=== PATIENT | female | born 1935 | race Caucasian/White ===

== ENCOUNTER → 2023-11-30 13:40 | Outpatient (REF) | payer MEDICARE, BC, SELFPAY ==
[2023-11-30 14:03] LABS: % Basophils 1.2 % (0-2); % Immature Granulocytes 0.5 % (0-0.5); % Lymphocytes 11.5 % (20.5-51.1); % Monocytes 7.8 % (1.7-9.3); Absolute Basophils 0.1 10^3/uL (0-0.2); Absolute Eosinophils 0.1 10^3/uL (0-0.7); Absolute Lymphocytes 0.8 10^3/uL (1.2-3.4); Absolute Monocytes 0.5 10^3/uL (0.1-0.6); Absolute Neutrophils 5.1 10^3/uL (1.4-6.5); Hematocrit 34.4 % (37.0-47.0); Hemoglobin 10.9 g/dL (12.0-16.0); Mean Corp Hgb Conc. 31.7 g/dL (33.0-37.0); Mean Corpuscular Hgb 27.3 pg (27.0-31.0); Platelet Count 107 10^3/uL (130-400); White Blood Cell Count 6.6 10^3/uL (4.8-10.8)
== END ==
LOC: OIDL 13:40
PROVIDERS: ATTENDING PHYSICIAN Internal Medicine Hematology & Oncology
DX: D69.3 Immune thrombocytopenic purpura (principal)
CPT/HCPCS: 36415; 85025

== ENCOUNTER → 2023-12-07 13:41 | Outpatient (REF) | payer MEDICARE, BC, SELFPAY ==
[2023-12-07 14:02] LABS: % Basophils 0.3 % (0-2); % Immature Granulocytes 0.5 % (0-0.5); % Lymphocytes 4.1 % (20.5-51.1); % Monocytes 5.2 % (1.7-9.3); % Neutrophils 89.9 % (42.2-75.2); Absolute Immature Granulocytes 0.1 10^3/uL (0-0.05); Absolute Lymphocytes 0.5 10^3/uL (1.2-3.4); Absolute Monocytes 0.6 10^3/uL (0.1-0.6); Absolute Neutrophils 10.3 10^3/uL (1.4-6.5); Hematocrit 34.3 % (37.0-47.0); Mean Corp Hgb Conc. 32.1 g/dL (33.0-37.0); Mean Corpuscular Hgb 27.4 pg (27.0-31.0); Mean Corpuscular Volume 85.3 fL (81.0-99.0); Mean Platelet Volume 11.4 fL (7.4-10.4); Platelet Count 108 10^3/uL (130-400); Red Blood Cell Count 4.02 10^6/uL (4.20-5.40); Red Cell Dist. Width 15.1 % (11.5-14.5); White Blood Cell Count 11.5 10^3/uL (4.8-10.8)
== END ==
LOC: OIDL 13:41
PROVIDERS: ATTENDING PHYSICIAN Internal Medicine Hematology & Oncology
DX: D69.3 Immune thrombocytopenic purpura (principal)
CPT/HCPCS: 36415; 85025

== ENCOUNTER → 2023-12-14 13:48 | Outpatient (REF) | payer MEDICARE, BC, SELFPAY ==
[2023-12-14 14:09] LABS: % Basophils 0.6 % (0-2); % Eosinophils 0.6 % (0-6); % Immature Granulocytes 0.6 % (0-0.5); % Lymphocytes 5.9 % (20.5-51.1); % Monocytes 8.1 % (1.7-9.3); % Neutrophils 84.2 % (42.2-75.2); Absolute Basophils 0.1 10^3/uL (0-0.2); Absolute Eosinophils 0.1 10^3/uL (0-0.7); Absolute Immature Granulocytes 0.1 10^3/uL (0-0.05); Absolute Lymphocytes 0.8 10^3/uL (1.2-3.4); Absolute Monocytes 1.2 10^3/uL (0.1-0.6); Hematocrit 33.3 % (37.0-47.0); Hemoglobin 10.7 g/dL (12.0-16.0); Mean Corp Hgb Conc. 32.1 g/dL (33.0-37.0); Mean Corpuscular Hgb 27.6 pg (27.0-31.0); Mean Corpuscular Volume 85.8 fL (81.0-99.0); Mean Platelet Volume 11.9 fL (7.4-10.4); Platelet Count 160 10^3/uL (130-400); Red Blood Cell Count 3.88 10^6/uL (4.20-5.40); Red Cell Dist. Width 15.9 % (11.5-14.5); White Blood Cell Count 14.2 10^3/uL (4.8-10.8)
== END ==
LOC: OIDL 13:48
PROVIDERS: ATTENDING PHYSICIAN Internal Medicine Hematology & Oncology
DX: D69.3 Immune thrombocytopenic purpura (principal)
CPT/HCPCS: 36415; 85025

== ENCOUNTER → 2023-12-21 13:49 | Outpatient (REF) | payer MEDICARE, BC, SELFPAY ==
[2023-12-21 14:16] LABS: % Basophils 0.7 % (0-2); % Eosinophils 1.4 % (0-6); % Immature Granulocytes 0.6 % (0-0.5); % Lymphocytes 9.8 % (20.5-51.1); % Monocytes 6.3 % (1.7-9.3); % Neutrophils 81.2 % (42.2-75.2); Absolute Basophils 0.1 10^3/uL (0-0.2); Absolute Eosinophils 0.1 10^3/uL (0-0.7); Absolute Lymphocytes 0.7 10^3/uL (1.2-3.4); Absolute Monocytes 0.5 10^3/uL (0.1-0.6); Absolute Neutrophils 5.8 10^3/uL (1.4-6.5); Hematocrit 33.2 % (37.0-47.0); Hemoglobin 10.5 g/dL (12.0-16.0); Mean Corp Hgb Conc. 31.6 g/dL (33.0-37.0); Mean Corpuscular Hgb 27.3 pg (27.0-31.0); Mean Corpuscular Volume 86.2 fL (81.0-99.0); Mean Platelet Volume 12.5 fL (7.4-10.4); Platelet Count 106 10^3/uL (130-400); Red Blood Cell Count 3.85 10^6/uL (4.20-5.40); Red Cell Dist. Width 15.3 % (11.5-14.5); White Blood Cell Count 7.1 10^3/uL (4.8-10.8)
== END ==
LOC: OIDL 13:49
PROVIDERS: ATTENDING PHYSICIAN Internal Medicine Hematology & Oncology
DX: D69.3 Immune thrombocytopenic purpura (principal)
CPT/HCPCS: 36415; 85025

== ENCOUNTER → 2023-12-28 13:48 | Outpatient (REF) | payer MEDICARE, BC, SELFPAY ==
[2023-12-28 14:36] LABS: % Basophils 1.3 % (0-2); % Eosinophils 1.3 % (0-6); % Immature Granulocytes 0.7 % (0-0.5); % Lymphocytes 10.6 % (20.5-51.1); % Monocytes 7.7 % (1.7-9.3); % Neutrophils 78.4 % (42.2-75.2); Absolute Basophils 0.1 10^3/uL (0-0.2); Absolute Eosinophils 0.1 10^3/uL (0-0.7); Absolute Immature Granulocytes 0.1 10^3/uL (0-0.05); Absolute Lymphocytes 0.8 10^3/uL (1.2-3.4); Absolute Monocytes 0.6 10^3/uL (0.1-0.6); Hematocrit 32.8 % (37.0-47.0); Hemoglobin 10.7 g/dL (12.0-16.0); Mean Corp Hgb Conc. 32.6 g/dL (33.0-37.0); Mean Corpuscular Hgb 27.4 pg (27.0-31.0); Mean Corpuscular Volume 84.1 fL (81.0-99.0); Mean Platelet Volume 12.7 fL (7.4-10.4); Nucleated Red Blood Cells % 0 %; Platelet Count 103 10^3/uL (130-400); Red Cell Dist. Width 15.6 % (11.5-14.5); White Blood Cell Count 7.6 10^3/uL (4.8-10.8)
== END ==
LOC: OIDL 13:48
PROVIDERS: ATTENDING PHYSICIAN Internal Medicine Hematology & Oncology
DX: D69.3 Immune thrombocytopenic purpura (principal)
CPT/HCPCS: 85025

== ENCOUNTER → 2023-12-29 12:33 | Outpatient (REF) | payer MEDICARE, BC, SELFPAY | LOC: WOUND 12:33 | PROVIDERS: ATTENDING PHYSICIAN Surgery; FAMILY PHYSICIAN Internal Medicine | DX: I87.312 Chronic venous hypertension (idiopathic) with ulcer of left lower extremity (principal); L97.821 Non-pressure chronic ulcer of other part of left lower leg limited to breakdown of skin; I87.2 Venous insufficiency (chronic) (peripheral); I89.0 Lymphedema, not elsewhere classified; D69.3 Immune thrombocytopenic purpura; Z17.0 Estrogen receptor positive status [ER+]; C50.411 Malignant neoplasm of upper-outer quadrant of right female breast; I10 Essential (primary) hypertension | CPT/HCPCS: 99203 ==

== ENCOUNTER → 2024-01-01 10:09 | Outpatient (REF) | payer MEDICARE, BC, SELFPAY | LOC: WDC 10:09 | PROVIDERS: ATTENDING PHYSICIAN Nurse Practitioner Adult Health; FAMILY PHYSICIAN Internal Medicine | DX: N63.10 Unspecified lump in the right breast, unspecified quadrant (principal); N63.12 Unspecified lump in the right breast, upper inner quadrant | CPT/HCPCS: 76642; 77062; 77066 ==

== ENCOUNTER → 2024-01-04 13:30 | Outpatient (REF) | payer MEDICARE, BC, SELFPAY | LOC: WOUND 13:30 | PROVIDERS: ATTENDING PHYSICIAN Surgery; FAMILY PHYSICIAN Internal Medicine | DX: I87.312 Chronic venous hypertension (idiopathic) with ulcer of left lower extremity (principal); L97.821 Non-pressure chronic ulcer of other part of left lower leg limited to breakdown of skin; I87.2 Venous insufficiency (chronic) (peripheral); I89.0 Lymphedema, not elsewhere classified; D69.3 Immune thrombocytopenic purpura; Z17.0 Estrogen receptor positive status [ER+]; C50.411 Malignant neoplasm of upper-outer quadrant of right female breast; I10 Essential (primary) hypertension | CPT/HCPCS: 11042; 36415; 85025 ==

== ENCOUNTER → 2024-01-11 13:50 | Outpatient (REF) | payer MEDICARE, BC, SELFPAY | LOC: WOUND 13:50 | PROVIDERS: ATTENDING PHYSICIAN Surgery; FAMILY PHYSICIAN Internal Medicine | DX: I87.312 Chronic venous hypertension (idiopathic) with ulcer of left lower extremity (principal); L97.821 Non-pressure chronic ulcer of other part of left lower leg limited to breakdown of skin; Z17.0 Estrogen receptor positive status [ER+]; C50.411 Malignant neoplasm of upper-outer quadrant of right female breast; I10 Essential (primary) hypertension; I89.0 Lymphedema, not elsewhere classified; D69.3 Immune thrombocytopenic purpura | CPT/HCPCS: 11042; 36415; 80053; 85025 ==

== ENCOUNTER → 2024-01-12 08:31 | Outpatient (REF) | payer MEDICARE, BC, SELFPAY ==
--- NOTE | 2024-01-12 14:19 | OID.BR.INTR ---
[facility] Breast Navigator - Initial
- -
Date of Contact: 01/12/24
Met with patient. Patient given written information on navigator services available at [facility]. Will follow up as needed per protocol.
== END ==
LOC: WDC 08:31
PROVIDERS: ATTENDING PHYSICIAN Nurse Practitioner Adult Health; FAMILY PHYSICIAN Internal Medicine
DX: N63.12 Unspecified lump in the right breast, upper inner quadrant (principal)
CPT/HCPCS: 88305; 19083

== ENCOUNTER → 2024-01-18 13:47 | Outpatient (REF) | payer MEDICARE, BC, SELFPAY ==
[2024-01-18 14:07] LABS: % Basophils 1.2 % (0-2); % Eosinophils 1.2 % (0-6); % Immature Granulocytes 0.7 % (0-0.5); % Lymphocytes 9.9 % (20.5-51.1); % Monocytes 6.9 % (1.7-9.3); % Neutrophils 80.1 % (42.2-75.2); Absolute Basophils 0.1 10^3/uL (0-0.2); Absolute Eosinophils 0.1 10^3/uL (0-0.7); Absolute Immature Granulocytes 0.1 10^3/uL (0-0.05); Absolute Lymphocytes 0.7 10^3/uL (1.2-3.4); Absolute Monocytes 0.5 10^3/uL (0.1-0.6); Absolute Neutrophils 5.9 10^3/uL (1.4-6.5); Hematocrit 32.7 % (37.0-47.0); Hemoglobin 10.3 g/dL (12.0-16.0); Mean Corp Hgb Conc. 31.5 g/dL (33.0-37.0); Mean Corpuscular Hgb 27.4 pg (27.0-31.0); Mean Platelet Volume 11.1 fL (7.4-10.4); Platelet Count 119 10^3/uL (130-400); Red Blood Cell Count 3.76 10^6/uL (4.20-5.40); Red Cell Dist. Width 15.4 % (11.5-14.5); White Blood Cell Count 7.3 10^3/uL (4.8-10.8)
== END ==
LOC: OIDL 13:47
PROVIDERS: ATTENDING PHYSICIAN Internal Medicine Hematology & Oncology
DX: D69.3 Immune thrombocytopenic purpura (principal)
CPT/HCPCS: 36415; 85025

== ENCOUNTER → 2024-01-19 13:33 | Outpatient (REF) | payer MEDICARE, BC, SELFPAY | LOC: WOUND 13:33 | PROVIDERS: ATTENDING PHYSICIAN Surgery; FAMILY PHYSICIAN Internal Medicine | DX: I87.312 Chronic venous hypertension (idiopathic) with ulcer of left lower extremity (principal); L97.821 Non-pressure chronic ulcer of other part of left lower leg limited to breakdown of skin; I87.2 Venous insufficiency (chronic) (peripheral); I89.0 Lymphedema, not elsewhere classified; D69.3 Immune thrombocytopenic purpura; Z17.0 Estrogen receptor positive status [ER+]; C50.411 Malignant neoplasm of upper-outer quadrant of right female breast; I10 Essential (primary) hypertension | CPT/HCPCS: 11042 ==

== ENCOUNTER → 2024-01-25 13:42 | Outpatient (REF) | payer MEDICARE, BC, SELFPAY | LOC: WOUND 13:42 | PROVIDERS: ATTENDING PHYSICIAN Surgery; FAMILY PHYSICIAN Internal Medicine | DX: I87.312 Chronic venous hypertension (idiopathic) with ulcer of left lower extremity (principal); L97.821 Non-pressure chronic ulcer of other part of left lower leg limited to breakdown of skin; I87.2 Venous insufficiency (chronic) (peripheral); I89.0 Lymphedema, not elsewhere classified; D69.3 Immune thrombocytopenic purpura; Z17.0 Estrogen receptor positive status [ER+]; C50.411 Malignant neoplasm of upper-outer quadrant of right female breast; I10 Essential (primary) hypertension | CPT/HCPCS: 11042; 36415; 85025 ==

== ENCOUNTER → 2024-01-25 14:05 | Outpatient (REF) | payer MEDICARE, BC, SELFPAY ==
[2024-01-25 14:32] LABS: % Basophils 1.3 % (0-2); % Immature Granulocytes 0.6 % (0-0.5); % Monocytes 6.7 % (1.7-9.3); % Neutrophils 76.4 % (42.2-75.2); Absolute Basophils 0.1 10^3/uL (0-0.2); Absolute Eosinophils 0.1 10^3/uL (0-0.7); Absolute Lymphocytes 0.7 10^3/uL (1.2-3.4); Absolute Monocytes 0.4 10^3/uL (0.1-0.6); Absolute Neutrophils 4.1 10^3/uL (1.4-6.5); Hematocrit 31.9 % (37.0-47.0); Hemoglobin 10.1 g/dL (12.0-16.0); Mean Corp Hgb Conc. 31.7 g/dL (33.0-37.0); Mean Corpuscular Hgb 27.2 pg (27.0-31.0); Mean Corpuscular Volume 85.8 fL (81.0-99.0); Mean Platelet Volume 10.9 fL (7.4-10.4); Platelet Count 127 10^3/uL (130-400); Red Blood Cell Count 3.72 10^6/uL (4.20-5.40); Red Cell Dist. Width 15.1 % (11.5-14.5); White Blood Cell Count 5.4 10^3/uL (4.8-10.8)
== END ==
LOC: OIDL 14:05
PROVIDERS: ATTENDING PHYSICIAN Internal Medicine Hematology & Oncology
DX: D69.3 Immune thrombocytopenic purpura (principal)
CPT/HCPCS: 36415; 85025

== ENCOUNTER → 2024-02-01 14:14 | Outpatient (REF) | payer MEDICARE, BC, SELFPAY ==
[2024-02-01 14:44] LABS: % Basophils 1.3 % (0-2); % Eosinophils 2.8 % (0-6); % Immature Granulocytes 0.5 % (0-0.5); % Lymphocytes 13.7 % (20.5-51.1); % Monocytes 7.4 % (1.7-9.3); % Neutrophils 74.3 % (42.2-75.2); Absolute Basophils 0.1 10^3/uL (0-0.2); Absolute Eosinophils 0.2 10^3/uL (0-0.7); Absolute Lymphocytes 0.8 10^3/uL (1.2-3.4); Absolute Monocytes 0.4 10^3/uL (0.1-0.6); Absolute Neutrophils 4.4 10^3/uL (1.4-6.5); Hematocrit 31.5 % (37.0-47.0); Hemoglobin 10.1 g/dL (12.0-16.0); Mean Corp Hgb Conc. 32.1 g/dL (33.0-37.0); Mean Corpuscular Hgb 27.7 pg (27.0-31.0); Mean Corpuscular Volume 86.3 fL (81.0-99.0); Mean Platelet Volume 12.1 fL (7.4-10.4); Platelet Count 115 10^3/uL (130-400); Red Blood Cell Count 3.65 10^6/uL (4.20-5.40); Red Cell Dist. Width 15.1 % (11.5-14.5)
== END ==
LOC: OIDL 14:14
PROVIDERS: ATTENDING PHYSICIAN Internal Medicine Hematology & Oncology
DX: D69.3 Immune thrombocytopenic purpura (principal)
CPT/HCPCS: 36415; 85025

== ENCOUNTER → 2024-02-08 13:55 | Outpatient (REF) | payer MEDICARE, BC, SELFPAY | LOC: WOUND 13:55 | PROVIDERS: ATTENDING PHYSICIAN Surgery; FAMILY PHYSICIAN Internal Medicine | DX: I87.312 Chronic venous hypertension (idiopathic) with ulcer of left lower extremity (principal); L97.821 Non-pressure chronic ulcer of other part of left lower leg limited to breakdown of skin; I87.2 Venous insufficiency (chronic) (peripheral); I89.0 Lymphedema, not elsewhere classified; D69.3 Immune thrombocytopenic purpura; Z17.0 Estrogen receptor positive status [ER+]; C50.411 Malignant neoplasm of upper-outer quadrant of right female breast; I10 Essential (primary) hypertension | CPT/HCPCS: 11042 ==

== ENCOUNTER → 2024-02-08 14:07 | Outpatient (REF) | payer MEDICARE, BC, SELFPAY ==
[2024-02-08 14:20] LABS: % Basophils 0.5 % (0-2); % Eosinophils 0.1 % (0-6); % Immature Granulocytes 0.2 % (0-0.5); % Lymphocytes 4.7 % (20.5-51.1); % Monocytes 4.3 % (1.7-9.3); % Neutrophils 90.2 % (42.2-75.2); Absolute Basophils 0.1 10^3/uL (0-0.2); Absolute Lymphocytes 0.5 10^3/uL (1.2-3.4); Absolute Monocytes 0.4 10^3/uL (0.1-0.6); Hematocrit 32.4 % (37.0-47.0); Hemoglobin 10.5 g/dL (12.0-16.0); Mean Corp Hgb Conc. 32.4 g/dL (33.0-37.0); Mean Corpuscular Hgb 27.7 pg (27.0-31.0); Mean Corpuscular Volume 85.5 fL (81.0-99.0); Mean Platelet Volume 11.7 fL (7.4-10.4); Platelet Count 172 10^3/uL (130-400); Red Blood Cell Count 3.79 10^6/uL (4.20-5.40); Red Cell Dist. Width 14.8 % (11.5-14.5)
== END ==
LOC: OIDL 14:07
PROVIDERS: ATTENDING PHYSICIAN Internal Medicine Hematology & Oncology
DX: D69.3 Immune thrombocytopenic purpura (principal)
CPT/HCPCS: 36415; 85025

== ENCOUNTER 2024-02-14 16:14 | Emergency (ER) | payer MEDICARE, BC, SELFPAY ==
[2024-02-14 18:27] VITALS: BP 203/86
--- NOTE | 2024-02-14 19:04 | ED.SKININJ ---
HPI-Injury
General
Chief Complaint: Skin Problem
Source: patient
Exam Limitations: none
Time Seen by Provider: 02/14/24 18:36
Travel History
Have you had any contact with someone who has COVID-19?: No
Do you have any symptoms of coronavirus? Fever > 100 degrees, chills, cough, shortness of breath, sore throat, loss of taste or smell, muscle aches, or headache?: No
History of Present Illness-Injury
Initial Injury comments:
88-year-old female with history of lymphedema presents blisters noted to the dorsal aspect distally of the foot on the left side. She denies pain or fever. She follows with wound care for nonhealing wound on the lateral aspect of her garza. Her
visiting nurse came by 2 days ago and placed a compressive wrap around her foot and leg for her lymphedema. When this was removed they noticed the blisters. No other complaints at this time
Past History
Past History
ED Past Medical History: Arrthythmia (Atrial fibrillation), CAD, HTN and Other (hearing impaired, ITP, chronic lymphedema bilateral legs)
ED Past Surgical History: Cardiac (cardiac cath with PTCA), Cholecystectomy, Gynecological (Tubal ligation), Orthopedic (Arthroscopic surgery on the knee) and Other
Social History
Tobacco: Non-smoker
Personal:
Living: with family
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
Family History
Family History: Other (Noncontributory)
Phy Exam
Physical Exam
Physical Exam:
General: Well-appearing female no acute respiratory distress
HEENT: Normocephalic atraumatic
Heart: Regular rate and rhythm
Skin: 2 cm sized blisters noted over the dorsal distal portion of the left at the base of the first and second toes. No surrounding discoloration or erythema. No drainage. The foot is nontender
Course
Orders/Labs/Results
Orders:
Orders
02/14/24 19:01
Cephalexin Monohydrate [Keflex] 500 mg PO NOW STA
Vital Signs
Initial and Last Documented VS:
Initial Vital Signs
Temp Pulse Pulse Ox
99.0 F 70 100
02/14/24 16:18 02/14/24 16:18 02/14/24 16:18
Last Documented Vital Signs
Temp Pulse BP Pulse Ox
99.0 F 62 203/86 100
02/14/24 16:18 02/14/24 18:27 02/14/24 18:27 02/14/24 18:27
MDM/Problems Addressed
Differential Diagnosis Includes:
Patient has blisters left leg. She has history of lymphedema. Patient very concerned about potential for infection. Did explain the fluid inside the blister still sterile however she is concerned about them opening. Will start her on Keflex.
Will provide a gauze wrap. She is seeing a wound care physician tomorrow. No indication for further workup including blood work or imaging. Stable for discharge
*Critical Care Note
Total Time (30-74mins, 75-104mins- exclusive of procedures): Not Applicable
ED Attending Note
-
Portions of this chart may have been created with voice recognition software.� Occasional wrong word or��sound alike� substitutions may have occurred due to the inherent limitations of voice recognition software.
Discharge Plan
Departure
Patient Disposition: Home (Routine Discharge)
Date of Disposition: 02/14/24
Time of Disposition: 19:06
Patient with high blood pressure during this ER visit?: No
Discharge Problem:
Blister
Instructions: Lymphedema
Prescriptions:
New
cephalexin 500 mg tablet
500 mg PO BID 7 Days Qty: 14 0RF
No Action
atenolol [Tenormin] 100 MG tablet
100 mg PO HS
lidocaine 1 PATCH adhesive patch,medicated
1 patch topical DAILY
Patient Comments:
05/25/2021: SPOUSE STATES MUST BE BRAND NAME
furosemide 20 MG tablet
20 mg PO DAILY
Patient Comments:
pt has not been taking the Lasix, last time taken May 30
valsartan [Diovan] 160 MG capsule
160 mg PO DAILY
acetaminophen [Tylenol Extra Strength] 500 MG tablet
1,000 mg PO TID
potassium chloride 10 MEQ capsule, extended release
0 meq PO DAILY Qty: 20 1RF
Referrals:
Bobby Dempsey MD [Family Provider] -
Activity Restrictions/Additional Instructions:
Please follow-up with music specialist as planned for tomorrow. Take antibiotics as directed. Keep dressing on if possible until seen by wound care
Interventions
Interventions:
*Risk Screen - Suicide Last Done: 02/14/24 18:27
*General Assessment Last Done: 02/14/24 18:27
*Neglect/Abuse Screening Last Done: 02/14/24 18:27
*ED COVID-19 Vaccine History Last Done: 02/14/24 18:27
Discharge Date and Time
Print Language: PARAGUAYAN
[2024-02-14] MEDS: KEFLEX 500 MG PO (19:14)
[2024-02-14 19:15] VITALS: BP 179/68
== END 2024-02-14 19:30 | disposition home or self-care (01) ==
LOC: EMR 16:14
PROVIDERS: EMERGENCY PHYSICIAN Emergency Medicine; FAMILY PHYSICIAN Internal Medicine
DX: S90.822A Blister (nonthermal), left foot, initial encounter (principal); X58.XXXA Exposure to other specified factors, initial encounter; I10 Essential (primary) hypertension
CPT/HCPCS: 99283

== ENCOUNTER → 2024-02-15 14:14 | Outpatient (REF) | payer MEDICARE, BC, SELFPAY | LOC: WOUND 14:14 | PROVIDERS: ATTENDING PHYSICIAN Surgery; FAMILY PHYSICIAN Internal Medicine | DX: I87.312 Chronic venous hypertension (idiopathic) with ulcer of left lower extremity (principal); L97.821 Non-pressure chronic ulcer of other part of left lower leg limited to breakdown of skin; I87.2 Venous insufficiency (chronic) (peripheral); I89.0 Lymphedema, not elsewhere classified; D69.3 Immune thrombocytopenic purpura; Z17.0 Estrogen receptor positive status [ER+]; C50.411 Malignant neoplasm of upper-outer quadrant of right female breast; I10 Essential (primary) hypertension | CPT/HCPCS: 11042; 36415; 85025 ==

== ENCOUNTER → 2024-02-22 13:30 | Outpatient (REF) | payer MEDICARE, BC, SELFPAY | LOC: WOUND 13:30 | PROVIDERS: ATTENDING PHYSICIAN Surgery; FAMILY PHYSICIAN Internal Medicine | DX: I87.312 Chronic venous hypertension (idiopathic) with ulcer of left lower extremity (principal); L97.821 Non-pressure chronic ulcer of other part of left lower leg limited to breakdown of skin; I87.2 Venous insufficiency (chronic) (peripheral); I89.0 Lymphedema, not elsewhere classified; D69.3 Immune thrombocytopenic purpura; Z17.0 Estrogen receptor positive status [ER+]; C50.411 Malignant neoplasm of upper-outer quadrant of right female breast; I10 Essential (primary) hypertension | CPT/HCPCS: 11042 ==

== ENCOUNTER → 2024-02-22 14:11 | Outpatient (REF) | payer MEDICARE, BC, SELFPAY ==
[2024-02-22 14:48] LABS: % Basophils 0.8 % (0-2); % Eosinophils 1.3 % (0-6); % Immature Granulocytes 0.5 % (0-0.5); % Lymphocytes 6.8 % (20.5-51.1); % Monocytes 7.7 % (1.7-9.3); % Neutrophils 82.9 % (42.2-75.2); Absolute Basophils 0.1 10^3/uL (0-0.2); Absolute Eosinophils 0.1 10^3/uL (0-0.7); Absolute Immature Granulocytes 0.1 10^3/uL (0-0.05); Absolute Lymphocytes 0.7 10^3/uL (1.2-3.4); Absolute Monocytes 0.7 10^3/uL (0.1-0.6); Absolute Neutrophils 7.9 10^3/uL (1.4-6.5); Hematocrit 34.8 % (37.0-47.0); Hemoglobin 11.1 g/dL (12.0-16.0); Mean Corp Hgb Conc. 31.9 g/dL (33.0-37.0); Mean Corpuscular Hgb 27.4 pg (27.0-31.0); Mean Corpuscular Volume 85.9 fL (81.0-99.0); Platelet Count 133 10^3/uL (130-400); Red Blood Cell Count 4.05 10^6/uL (4.20-5.40); Red Cell Dist. Width 14.7 % (11.5-14.5); White Blood Cell Count 9.5 10^3/uL (4.8-10.8)
== END ==
LOC: OIDL 14:11
PROVIDERS: ATTENDING PHYSICIAN Internal Medicine Hematology & Oncology
DX: D69.3 Immune thrombocytopenic purpura (principal); D51.8 Other vitamin B12 deficiency anemias
CPT/HCPCS: 36415; 85025

== ENCOUNTER → 2024-02-29 13:53 | Outpatient (REF) | payer MEDICARE, BC, SELFPAY ==
[2024-02-29 14:10] LABS: % Basophils 0.8 % (0-2); % Eosinophils 1.1 % (0-6); % Immature Granulocytes 0.3 % (0-0.5); % Lymphocytes 9.6 % (20.5-51.1); % Monocytes 6.8 % (1.7-9.3); % Neutrophils 81.4 % (42.2-75.2); Absolute Basophils 0.1 10^3/uL (0-0.2); Absolute Eosinophils 0.1 10^3/uL (0-0.7); Absolute Lymphocytes 0.7 10^3/uL (1.2-3.4); Absolute Monocytes 0.5 10^3/uL (0.1-0.6); Absolute Neutrophils 5.9 10^3/uL (1.4-6.5); Hematocrit 34.1 % (37.0-47.0); Hemoglobin 10.7 g/dL (12.0-16.0); Mean Corp Hgb Conc. 31.4 g/dL (33.0-37.0); Mean Corpuscular Hgb 27.2 pg (27.0-31.0); Mean Corpuscular Volume 86.8 fL (81.0-99.0); Platelet Count 89 10^3/uL (130-400); Red Blood Cell Count 3.93 10^6/uL (4.20-5.40); Red Cell Dist. Width 14.6 % (11.5-14.5); White Blood Cell Count 7.2 10^3/uL (4.8-10.8)
== END ==
LOC: OIDL 13:53
PROVIDERS: ATTENDING PHYSICIAN Internal Medicine Hematology & Oncology
DX: D69.3 Immune thrombocytopenic purpura (principal); D51.8 Other vitamin B12 deficiency anemias
CPT/HCPCS: 36415; 85025

== ENCOUNTER → 2024-03-05 14:23 | Outpatient (REF) | payer MEDICARE, BC, SELFPAY | LOC: WOUND 14:23 | PROVIDERS: ATTENDING PHYSICIAN Surgery; FAMILY PHYSICIAN Internal Medicine | DX: I87.312 Chronic venous hypertension (idiopathic) with ulcer of left lower extremity (principal); L97.821 Non-pressure chronic ulcer of other part of left lower leg limited to breakdown of skin; I87.2 Venous insufficiency (chronic) (peripheral); I89.0 Lymphedema, not elsewhere classified; D69.3 Immune thrombocytopenic purpura; Z17.0 Estrogen receptor positive status [ER+]; C50.411 Malignant neoplasm of upper-outer quadrant of right female breast; I10 Essential (primary) hypertension | CPT/HCPCS: 11042 ==

== ENCOUNTER → 2024-03-07 14:02 | Outpatient (REF) | payer MEDICARE, BC, SELFPAY ==
[2024-03-07 14:19] LABS: % Basophils 0.9 % (0-2); % Eosinophils 2.4 % (0-6); % Immature Granulocytes 0.6 % (0-0.5); % Lymphocytes 10.3 % (20.5-51.1); % Monocytes 6.9 % (1.7-9.3); % Neutrophils 78.9 % (42.2-75.2); Absolute Basophils 0.1 10^3/uL (0-0.2); Absolute Eosinophils 0.2 10^3/uL (0-0.7); Absolute Lymphocytes 0.7 10^3/uL (1.2-3.4); Absolute Monocytes 0.4 10^3/uL (0.1-0.6); Hematocrit 36.2 % (37.0-47.0); Hemoglobin 11.4 g/dL (12.0-16.0); Mean Corp Hgb Conc. 31.5 g/dL (33.0-37.0); Mean Corpuscular Hgb 27.3 pg (27.0-31.0); Mean Corpuscular Volume 86.6 fL (81.0-99.0); Mean Platelet Volume 13.2 fL (7.4-10.4); Platelet Count 106 10^3/uL (130-400); Red Blood Cell Count 4.18 10^6/uL (4.20-5.40); Red Cell Dist. Width 14.8 % (11.5-14.5); White Blood Cell Count 6.4 10^3/uL (4.8-10.8)
== END ==
LOC: OIDL 14:02
PROVIDERS: ATTENDING PHYSICIAN Internal Medicine Hematology & Oncology
DX: D69.3 Immune thrombocytopenic purpura (principal); D51.8 Other vitamin B12 deficiency anemias
CPT/HCPCS: 36415; 85025

== ENCOUNTER → 2024-03-14 13:34 | Outpatient (REF) | payer MEDICARE, BC, SELFPAY | LOC: WOUND 13:34 | PROVIDERS: ATTENDING PHYSICIAN Surgery; FAMILY PHYSICIAN Internal Medicine | DX: I87.312 Chronic venous hypertension (idiopathic) with ulcer of left lower extremity (principal); L97.821 Non-pressure chronic ulcer of other part of left lower leg limited to breakdown of skin; I87.2 Venous insufficiency (chronic) (peripheral); I89.0 Lymphedema, not elsewhere classified; D69.3 Immune thrombocytopenic purpura; Z17.0 Estrogen receptor positive status [ER+]; C50.411 Malignant neoplasm of upper-outer quadrant of right female breast; I10 Essential (primary) hypertension | CPT/HCPCS: 11042 ==

== ENCOUNTER → 2024-03-14 13:59 | Outpatient (REF) | payer MEDICARE, BC, SELFPAY ==
[2024-03-14 14:09] LABS: % Basophils 1.5 % (0-2); % Eosinophils 2.7 % (0-6); % Immature Granulocytes 0.4 % (0-0.5); % Lymphocytes 11.5 % (20.5-51.1); % Monocytes 7.5 % (1.7-9.3); % Neutrophils 76.4 % (42.2-75.2); Absolute Basophils 0.1 10^3/uL (0-0.2); Absolute Eosinophils 0.2 10^3/uL (0-0.7); Absolute Lymphocytes 0.6 10^3/uL (1.2-3.4); Absolute Monocytes 0.4 10^3/uL (0.1-0.6); Absolute Neutrophils 4.2 10^3/uL (1.4-6.5); Hematocrit 34.2 % (37.0-47.0); Hemoglobin 10.9 g/dL (12.0-16.0); Mean Corp Hgb Conc. 31.9 g/dL (33.0-37.0); Mean Corpuscular Hgb 27.5 pg (27.0-31.0); Mean Corpuscular Volume 86.4 fL (81.0-99.0); Mean Platelet Volume 13.4 fL (7.4-10.4); Platelet Count 93 10^3/uL (130-400); Red Blood Cell Count 3.96 10^6/uL (4.20-5.40); Red Cell Dist. Width 14.8 % (11.5-14.5); White Blood Cell Count 5.5 10^3/uL (4.8-10.8)
== END ==
LOC: OIDL 13:59
PROVIDERS: ATTENDING PHYSICIAN Internal Medicine Hematology & Oncology
DX: D69.3 Immune thrombocytopenic purpura (principal); D51.8 Other vitamin B12 deficiency anemias
CPT/HCPCS: 36415; 85025

== ENCOUNTER → 2024-03-21 13:54 | Outpatient (REF) | payer MEDICARE, BC, SELFPAY ==
[2024-03-21 14:27] LABS: % Basophils 1.4 % (0-2); % Eosinophils 3.1 % (0-6); % Immature Granulocytes 0.5 % (0-0.5); % Lymphocytes 11.4 % (20.5-51.1); % Monocytes 5.6 % (1.7-9.3); Absolute Basophils 0.1 10^3/uL (0-0.2); Absolute Eosinophils 0.2 10^3/uL (0-0.7); Absolute Lymphocytes 0.7 10^3/uL (1.2-3.4); Absolute Monocytes 0.3 10^3/uL (0.1-0.6); Absolute Neutrophils 4.6 10^3/uL (1.4-6.5); Hematocrit 34.7 % (37.0-47.0); Hemoglobin 11.1 g/dL (12.0-16.0); Mean Corpuscular Hgb 27.5 pg (27.0-31.0); Mean Corpuscular Volume 85.9 fL (81.0-99.0); Mean Platelet Volume 13.5 fL (7.4-10.4); Platelet Count 120 10^3/uL (130-400); Red Blood Cell Count 4.04 10^6/uL (4.20-5.40); Red Cell Dist. Width 14.9 % (11.5-14.5); White Blood Cell Count 5.9 10^3/uL (4.8-10.8)
== END ==
LOC: OIDL 13:54
PROVIDERS: ATTENDING PHYSICIAN Internal Medicine Hematology & Oncology
DX: D69.3 Immune thrombocytopenic purpura (principal); D51.8 Other vitamin B12 deficiency anemias
CPT/HCPCS: 36415; 85025

== ENCOUNTER → 2024-03-28 13:36 | Outpatient (REF) | payer MEDICARE, BC, SELFPAY | LOC: WOUND 13:36 | PROVIDERS: ATTENDING PHYSICIAN Surgery; FAMILY PHYSICIAN Internal Medicine | DX: I87.312 Chronic venous hypertension (idiopathic) with ulcer of left lower extremity (principal); L97.821 Non-pressure chronic ulcer of other part of left lower leg limited to breakdown of skin; I87.2 Venous insufficiency (chronic) (peripheral); I89.0 Lymphedema, not elsewhere classified; D69.3 Immune thrombocytopenic purpura; C50.411 Malignant neoplasm of upper-outer quadrant of right female breast; I10 Essential (primary) hypertension; Z17.0 Estrogen receptor positive status [ER+] | CPT/HCPCS: 11042 ==

== ENCOUNTER → 2024-03-28 14:06 | Outpatient (REF) | payer MEDICARE, BC, SELFPAY ==
[2024-03-28 14:22] LABS: % Eosinophils 2.5 % (0-6); % Immature Granulocytes 0.5 % (0-0.5); % Lymphocytes 10.6 % (20.5-51.1); % Monocytes 6.7 % (1.7-9.3); % Neutrophils 78.7 % (42.2-75.2); Absolute Basophils 0.1 10^3/uL (0-0.2); Absolute Eosinophils 0.2 10^3/uL (0-0.7); Absolute Lymphocytes 0.6 10^3/uL (1.2-3.4); Absolute Monocytes 0.4 10^3/uL (0.1-0.6); Absolute Neutrophils 4.7 10^3/uL (1.4-6.5); Hematocrit 31.8 % (37.0-47.0); Hemoglobin 10.2 g/dL (12.0-16.0); Mean Corp Hgb Conc. 32.1 g/dL (33.0-37.0); Mean Corpuscular Hgb 27.6 pg (27.0-31.0); Mean Corpuscular Volume 85.9 fL (81.0-99.0); Platelet Count 93 10^3/uL (130-400); Red Cell Dist. Width 15.2 % (11.5-14.5)
== END ==
LOC: OIDL 14:06
PROVIDERS: ATTENDING PHYSICIAN Internal Medicine Hematology & Oncology
DX: D69.3 Immune thrombocytopenic purpura (principal); D51.8 Other vitamin B12 deficiency anemias
CPT/HCPCS: 36415; 85025

== ENCOUNTER → 2024-04-04 14:14 | Outpatient (REF) | payer MEDICARE, BC, SELFPAY ==
[2024-04-04 14:35] LABS: % Basophils 0.9 % (0-2); % Eosinophils 3.6 % (0-6); % Immature Granulocytes 0.3 % (0-0.5); % Lymphocytes 11.8 % (20.5-51.1); % Monocytes 8.3 % (1.7-9.3); % Neutrophils 75.1 % (42.2-75.2); Absolute Basophils 0.1 10^3/uL (0-0.2); Absolute Eosinophils 0.2 10^3/uL (0-0.7); Absolute Lymphocytes 0.8 10^3/uL (1.2-3.4); Absolute Monocytes 0.6 10^3/uL (0.1-0.6); Hematocrit 32.4 % (37.0-47.0); Hemoglobin 10.3 g/dL (12.0-16.0); Mean Corp Hgb Conc. 31.8 g/dL (33.0-37.0); Mean Corpuscular Hgb 27.4 pg (27.0-31.0); Mean Corpuscular Volume 86.2 fL (81.0-99.0); Platelet Count 100 10^3/uL (130-400); Red Blood Cell Count 3.76 10^6/uL (4.20-5.40); Red Cell Dist. Width 15.4 % (11.5-14.5); White Blood Cell Count 6.6 10^3/uL (4.8-10.8)
== END ==
LOC: OIDL 14:14
PROVIDERS: ATTENDING PHYSICIAN Internal Medicine Hematology & Oncology
DX: D69.3 Immune thrombocytopenic purpura (principal); D51.8 Other vitamin B12 deficiency anemias
CPT/HCPCS: 85025

== ENCOUNTER → 2024-04-11 15:43 | Outpatient (REF) | payer MEDICARE, BC, SELFPAY ==
[2024-04-11 15:22] LABS: % Basophils 0.3 % (0-2); % Immature Granulocytes 0.9 % (0-0.5); % Lymphocytes 4.8 % (20.5-51.1); Absolute Immature Granulocytes 0.1 10^3/uL (0-0.05); Absolute Lymphocytes 0.5 10^3/uL (1.2-3.4); Absolute Monocytes 0.4 10^3/uL (0.1-0.6); Absolute Neutrophils 9.7 10^3/uL (1.4-6.5); Hematocrit 30.8 % (37.0-47.0); Hemoglobin 10.1 g/dL (12.0-16.0); Mean Corp Hgb Conc. 32.8 g/dL (33.0-37.0); Mean Corpuscular Hgb 27.4 pg (27.0-31.0); Mean Corpuscular Volume 83.7 fL (81.0-99.0); Nucleated Red Blood Cells % 0 %; Platelet Count 161 10^3/uL (130-400); Red Blood Cell Count 3.68 10^6/uL (4.20-5.40); Red Cell Dist. Width 15.4 % (11.5-14.5); White Blood Cell Count 10.8 10^3/uL (4.8-10.8)
== END ==
LOC: OIDL 15:43
PROVIDERS: ATTENDING PHYSICIAN Internal Medicine Hematology & Oncology
DX: D69.3 Immune thrombocytopenic purpura (principal)
CPT/HCPCS: 85025

== ENCOUNTER → 2024-04-18 14:14 | Outpatient (REF) | payer MEDICARE, BC, SELFPAY ==
[2024-04-18 14:50] LABS: % Basophils 0.8 % (0-2); % Immature Granulocytes 0.7 % (0-0.5); % Lymphocytes 9.7 % (20.5-51.1); % Monocytes 10.4 % (1.7-9.3); % Neutrophils 77.4 % (42.2-75.2); Absolute Basophils 0.1 10^3/uL (0-0.2); Absolute Eosinophils 0.1 10^3/uL (0-0.7); Absolute Immature Granulocytes 0.1 10^3/uL (0-0.05); Absolute Lymphocytes 0.9 10^3/uL (1.2-3.4); Absolute Monocytes 0.9 10^3/uL (0.1-0.6); Absolute Neutrophils 6.8 10^3/uL (1.4-6.5); Hematocrit 32.4 % (37.0-47.0); Hemoglobin 10.3 g/dL (12.0-16.0); Mean Corp Hgb Conc. 31.8 g/dL (33.0-37.0); Mean Corpuscular Hgb 27.4 pg (27.0-31.0); Mean Corpuscular Volume 86.2 fL (81.0-99.0); Mean Platelet Volume 12.6 fL (7.4-10.4); Platelet Count 171 10^3/uL (130-400); Red Blood Cell Count 3.76 10^6/uL (4.20-5.40); Red Cell Dist. Width 15.3 % (11.5-14.5); White Blood Cell Count 8.8 10^3/uL (4.8-10.8)
== END ==
LOC: OIDL 14:14
PROVIDERS: ATTENDING PHYSICIAN Internal Medicine Hematology & Oncology; FAMILY PHYSICIAN Internal Medicine
DX: D69.3 Immune thrombocytopenic purpura (principal); D51.8 Other vitamin B12 deficiency anemias
CPT/HCPCS: 36415; 85025

== ENCOUNTER → 2024-04-25 14:14 | Outpatient (REF) | payer MEDICARE, BC, SELFPAY ==
[2024-04-25 14:30] LABS: % Basophils 0.6 % (0-2); % Eosinophils 1.2 % (0-6); % Immature Granulocytes 0.6 % (0-0.5); % Lymphocytes 9.4 % (20.5-51.1); % Monocytes 7.2 % (1.7-9.3); Absolute Basophils 0.1 10^3/uL (0-0.2); Absolute Eosinophils 0.1 10^3/uL (0-0.7); Absolute Immature Granulocytes 0.1 10^3/uL (0-0.05); Absolute Lymphocytes 0.8 10^3/uL (1.2-3.4); Absolute Monocytes 0.6 10^3/uL (0.1-0.6); Hematocrit 33.2 % (37.0-47.0); Hemoglobin 10.6 g/dL (12.0-16.0); Mean Corp Hgb Conc. 31.9 g/dL (33.0-37.0); Mean Corpuscular Hgb 27.3 pg (27.0-31.0); Mean Corpuscular Volume 85.6 fL (81.0-99.0); Red Blood Cell Count 3.88 10^6/uL (4.20-5.40); Red Cell Dist. Width 15.3 % (11.5-14.5); White Blood Cell Count 8.6 10^3/uL (4.8-10.8)
[2024-04-25 14:34] LABS: Mean Platelet Volume 12.7 fL (7.4-10.4); Platelet Count 125 10^3/uL (130-400)
== END ==
LOC: OIDL 14:14
PROVIDERS: ATTENDING PHYSICIAN Internal Medicine Hematology & Oncology
DX: D69.3 Immune thrombocytopenic purpura (principal); D51.8 Other vitamin B12 deficiency anemias
CPT/HCPCS: 36415; 85025

== ENCOUNTER → 2024-05-09 14:14 | Outpatient (REF) | payer MEDICARE, BC, SELFPAY ==
[2024-05-09 14:29] LABS: % Basophils 0.8 % (0-2); % Eosinophils 1.7 % (0-6); % Immature Granulocytes 0.3 % (0-0.5); % Lymphocytes 11.1 % (20.5-51.1); % Monocytes 8.2 % (1.7-9.3); % Neutrophils 77.9 % (42.2-75.2); Absolute Basophils 0.1 10^3/uL (0-0.2); Absolute Eosinophils 0.1 10^3/uL (0-0.7); Absolute Lymphocytes 0.7 10^3/uL (1.2-3.4); Absolute Monocytes 0.5 10^3/uL (0.1-0.6); Absolute Neutrophils 5.1 10^3/uL (1.4-6.5); Hemoglobin 10.4 g/dL (12.0-16.0); Mean Corp Hgb Conc. 31.5 g/dL (33.0-37.0); Mean Corpuscular Hgb 27.2 pg (27.0-31.0); Mean Corpuscular Volume 86.2 fL (81.0-99.0); Platelet Count 112 10^3/uL (130-400); Red Blood Cell Count 3.83 10^6/uL (4.20-5.40); Red Cell Dist. Width 14.9 % (11.5-14.5); White Blood Cell Count 6.5 10^3/uL (4.8-10.8)
== END ==
LOC: OIDL 14:14
PROVIDERS: ATTENDING PHYSICIAN Internal Medicine Hematology & Oncology; PRIMARYCARE PHYSICIAN Student in an Organized Health Care Education/Training Program
DX: D69.3 Immune thrombocytopenic purpura (principal); D51.8 Other vitamin B12 deficiency anemias
CPT/HCPCS: 36415; 85025

== ENCOUNTER → 2024-05-16 14:09 | Outpatient (REF) | payer MEDICARE, BC, SELFPAY ==
[2024-05-16 14:26] LABS: % Eosinophils 1.4 % (0-6); % Immature Granulocytes 0.6 % (0-0.5); % Lymphocytes 11.7 % (20.5-51.1); % Monocytes 7.7 % (1.7-9.3); % Neutrophils 77.6 % (42.2-75.2); Absolute Basophils 0.1 10^3/uL (0-0.2); Absolute Eosinophils 0.1 10^3/uL (0-0.7); Absolute Lymphocytes 0.8 10^3/uL (1.2-3.4); Absolute Monocytes 0.5 10^3/uL (0.1-0.6); Absolute Neutrophils 5.4 10^3/uL (1.4-6.5); Hematocrit 33.7 % (37.0-47.0); Hemoglobin 10.6 g/dL (12.0-16.0); Mean Corp Hgb Conc. 31.5 g/dL (33.0-37.0); Mean Corpuscular Hgb 27.1 pg (27.0-31.0); Mean Corpuscular Volume 86.2 fL (81.0-99.0); Platelet Count 84 10^3/uL (130-400); Red Blood Cell Count 3.91 10^6/uL (4.20-5.40); Red Cell Dist. Width 14.9 % (11.5-14.5)
== END ==
LOC: OIDL 14:09
PROVIDERS: ATTENDING PHYSICIAN Internal Medicine Hematology & Oncology
DX: D69.3 Immune thrombocytopenic purpura (principal); D51.8 Other vitamin B12 deficiency anemias
CPT/HCPCS: 85025

== ENCOUNTER → 2024-05-30 14:12 | Outpatient (REF) | payer MEDICARE, BC, SELFPAY ==
[2024-05-30 14:23] LABS: % Basophils 1.3 % (0-2); % Eosinophils 1.6 % (0-6); % Immature Granulocytes 0.8 % (0-0.5); % Lymphocytes 10.6 % (20.5-51.1); % Neutrophils 76.7 % (42.2-75.2); Absolute Basophils 0.1 10^3/uL (0-0.2); Absolute Eosinophils 0.1 10^3/uL (0-0.7); Absolute Immature Granulocytes 0.1 10^3/uL (0-0.05); Absolute Lymphocytes 0.8 10^3/uL (1.2-3.4); Absolute Monocytes 0.7 10^3/uL (0.1-0.6); Absolute Neutrophils 5.7 10^3/uL (1.4-6.5); Hematocrit 31.8 % (37.0-47.0); Hemoglobin 9.9 g/dL (12.0-16.0); Mean Corp Hgb Conc. 31.1 g/dL (33.0-37.0); Mean Corpuscular Volume 86.6 fL (81.0-99.0); Mean Platelet Volume 12.4 fL (7.4-10.4); Platelet Count 179 10^3/uL (130-400); Red Blood Cell Count 3.67 10^6/uL (4.20-5.40); Red Cell Dist. Width 14.9 % (11.5-14.5); White Blood Cell Count 7.4 10^3/uL (4.8-10.8)
== END ==
LOC: OIDL 14:12
PROVIDERS: ATTENDING PHYSICIAN Internal Medicine Hematology & Oncology
DX: D69.3 Immune thrombocytopenic purpura (principal); D51.8 Other vitamin B12 deficiency anemias
CPT/HCPCS: 36415; 85025

== ENCOUNTER → 2024-06-06 14:06 | Outpatient (REF) | payer MEDICARE, BC, SELFPAY ==
[2024-06-06 14:31] LABS: % Basophils 1.4 % (0-2); % Eosinophils 1.8 % (0-6); % Immature Granulocytes 0.4 % (0-0.5); % Lymphocytes 7.7 % (20.5-51.1); % Monocytes 7.8 % (1.7-9.3); % Neutrophils 80.9 % (42.2-75.2); Absolute Basophils 0.1 10^3/uL (0-0.2); Absolute Eosinophils 0.1 10^3/uL (0-0.7); Absolute Lymphocytes 0.6 10^3/uL (1.2-3.4); Absolute Monocytes 0.6 10^3/uL (0.1-0.6); Absolute Neutrophils 5.8 10^3/uL (1.4-6.5); Hematocrit 32.2 % (37.0-47.0); Hemoglobin 10.1 g/dL (12.0-16.0); Mean Corp Hgb Conc. 31.4 g/dL (33.0-37.0); Mean Corpuscular Hgb 26.8 pg (27.0-31.0); Mean Corpuscular Volume 85.4 fL (81.0-99.0); Mean Platelet Volume 11.3 fL (7.4-10.4); Platelet Count 164 10^3/uL (130-400); Red Blood Cell Count 3.77 10^6/uL (4.20-5.40); Red Cell Dist. Width 14.8 % (11.5-14.5); White Blood Cell Count 7.2 10^3/uL (4.8-10.8)
[2024-06-06 17:19] LABS: HIV Combo Reactive (Negative)
[2024-06-06 17:49] LABS: Hepatitis B Surface Antigen Negative (Negative)
[2024-06-06 18:06] LABS: Hepatitis C Antibody Negative (Negative)
[2024-06-09 01:05] LABS: HIV Serologic Interpretation HIV Abs Neg; HIV-1 Antibody Negative (Negative); HIV-2 Antibody Negative (Negative)
== END ==
LOC: OIDL 14:06
PROVIDERS: ATTENDING PHYSICIAN Internal Medicine Hematology & Oncology
DX: D69.3 Immune thrombocytopenic purpura (principal); D51.8 Other vitamin B12 deficiency anemias
CPT/HCPCS: 85025; 86701; 86702; 86803; 87340; 87389

== ENCOUNTER 2024-06-20 23:30 | Inpatient (IN) | payer MEDICARE, BC, SELFPAY ==
[2024-06-20 16:48] VITALS: BMI 28.5
[2024-06-20 17:08] VITALS: BP 162/87
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
[2024-06-20 19:03] VITALS: BP 135/78
[2024-06-20 19:28] LABS: ALT (SGPT) 14 U/L (0-35); AST (SGOT) 18 U/L (14-36); Albumin 4.1 g/dl (3.5-5.0); Alkaline Phosphatase 88 U/L (38-126); Blood Urea Nitrogen 19 mg/dl (7-17); Calcium 9.2 mg/dl (8.4-10.2); Carbon Dioxide 24 mmol/L (22-30); Chloride 108 mmol/L (98-107); Estimated Creatinine Clearance 44 ml/min; Glucose 108 mg/dl (70-99); Potassium 3.9 mmol/L (3.5-5.1); Sodium 145 mmol/L (135-145); Total Protein 6.8 g/dl (6.3-8.2); eGFR > 60.00
[2024-06-20] MEDS: LASIX 40 MG IV (21:54)
[2024-06-20] MEDS: TYLENOL 1000 MG PO (21:54)
[2024-06-20 22:05] VITALS: BP 138/68
[2024-06-20 22:25] LABS: NT-proBNP 9120 pg/ml; Troponin I 0.013 ng/ml
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
[2024-06-20 23:22] LABS: COVID-19 Antigen Positive (Negative)
[2024-06-21] VITALS (8 sets, daily range): BP systolic 67–212; BP diastolic 44–101; PULSE 90–94; O2SAT 97–98; BMI 25.7
[2024-06-21] MEDS: COLACE PO ×4 (00:10→20:19)
[2024-06-21] MEDS: SENOKOT PO ×4 (00:15→20:19)
[2024-06-21] MEDS: TYLENOL 1000 MG PO ×3 (06:26→22:40)
[2024-06-21 07:13] LABS: Blood Urea Nitrogen 15 mg/dl (7-17); Calcium 8.9 mg/dl (8.4-10.2); Carbon Dioxide 27 mmol/L (22-30); Chloride 104 mmol/L (98-107); Estimated Creatinine Clearance 41 ml/min; Glucose 105 mg/dl (70-99); Potassium 3.7 mmol/L (3.5-5.1); Sodium 141 mmol/L (135-145); eGFR > 60.00
[2024-06-21 07:24] LABS: % Basophils 0.9 % (0-2); % Immature Granulocytes 0.7 % (0-0.5); % Lymphocytes 13.9 % (20.5-51.1); % Monocytes 11.1 % (1.7-9.3); % Neutrophils 71.4 % (42.2-75.2); Absolute Eosinophils 0.1 10^3/uL (0-0.7); Absolute Lymphocytes 0.6 10^3/uL (1.2-3.4); Absolute Monocytes 0.5 10^3/uL (0.1-0.6); Absolute Neutrophils 3.3 10^3/uL (1.4-6.5); Hematocrit 30.5 % (37.0-47.0); Mean Corp Hgb Conc. 32.8 g/dL (33.0-37.0); Mean Corpuscular Hgb 26.2 pg (27.0-31.0); Mean Corpuscular Volume 79.8 fL (81.0-99.0); Nucleated Red Blood Cells % 0 %; Platelet Count 105 10^3/uL (130-400); Red Blood Cell Count 3.82 10^6/uL (4.20-5.40); Red Cell Dist. Width 14.9 % (11.5-14.5); White Blood Cell Count 4.6 10^3/uL (4.8-10.8)
[2024-06-21 07:36] LABS: Blood Urea Nitrogen 15 mg/dl (7-17); Calcium 8.8 mg/dl (8.4-10.2); Carbon Dioxide 27 mmol/L (22-30); Chloride 103 mmol/L (98-107); Estimated Creatinine Clearance 41 ml/min; Glucose 104 mg/dl (70-99); Magnesium 1.4 mg/dl (1.6-2.3); Potassium 3.7 mmol/L (3.5-5.1); Sodium 143 mmol/L (135-145); eGFR > 60.00
[2024-06-21 07:54] LABS: TSH Reflex To Free T4 0.96 uIU/ml (0.47-4.68)
--- NOTE | 2024-06-21 08:02 | PTCARENOTE ---
Monitor showing A fib.Ekg in ED showed NSR w/PCV's. @0715;Ekg Completed and results of A fib ,TT to aJgdish VAIL. Pt not cooperative with taking BP.Pt yelling,holding hand/arm stiff while yelling ,'it hurts ,stop it '.BP taken several times since
admission and remains high each time due to pt's behavior= 203/91. @3995; TT received from Evonne to give morning dose of Tylenol, stat BMP ordered and was administered.
--- NOTE | 2024-06-21 08:28 | W.PN.UPDATE ---
Update Note
Progress Note Update
Full H&P to follow
Consult for 88-year-old male with suspected right distal fibula fracture. Questionable lucency on intermittent views or likely distal to the syndesmosis/joint line.
Imaging consistent with stable isolated distal fibula fracture
May be weightbearing as tolerated in a cam boot with assistive devices for fall precautions x 4 weeks. May come out of the cam boot to work on range of motion. Recommend PT OT consult with boot fitting weightbearing as tolerated with Cam boot with
follow-up in orthopedic surgery 1 to 2 weeks for repeat weightbearing x-rays
CAM Boot order placed
[2024-06-21] MEDS: LASIX 40 MG IV ×2 (10:03→17:07)
[2024-06-21] MEDS: DIOVAN 160 MG PO (10:04)
--- NOTE | 2024-06-21 10:30 | WOUNDNOTE ---
WOC RN NOTE: Patient has bruising and non open wounds. Hospitalist notified and consult cancelled.
--- NOTE | 2024-06-21 10:50 | W.PN.HOSP.TC ---
Addendum entered and electronically signed by Maikel Fritz MD 06/21/24 12:47:
I saw and evaluated the patient. I reviewed the resident�s note and agree with findings and plan as documented in the resident�s note.
No new complaints.
Gen: NAD, Awake and alert
Eyes: EOMI, PERRLA, no scleral icterus.
Neck: supple.
CV: irreg/irreg, +S1/S2, no m/r/g.
Resp: rales in the bases, no wheezes or rhonchi.
Abd: +BS, soft, NT, ND
Skin: No rashes. 1+ B/L LE edema
Neuro: CN 2-12 intact, non-focal.
Psych: Normal mood and affect.
CXR: Mild to moderate CHF.
Echo: Normal biventricular size and systolic function without regional wall motion
abnormality. Estimated LVEF 60-65%.
Mild/moderate mitral regurgitation.
Trace aortic regurgitation.
Mild tricuspid regurgitation. Severely elevated PASP. Estimated pulmonary
artery pressure of 61 mmHg. Assuming a right atrial pressure of 15 mmHg.
Compared to 05/05/16: MR has progressed from mild to mild/moderate. PASP has
increased from 45 mmHg to 61 mmHg.
Acute HFpEF:
-echo above
-cont IV lasix
-daily wts, I/Os
R ankle fracture s/p fall:
-appreciate ortho. CAM boot, WBAT
-no surgical intervention indicated at this time
Essential HTN with hypertensive urgency:
-start Norvasc 5mg daily
-cont Diovan/Atenolol
Discussed with cardiology.
Total time spent on today's encounter was 50 minutes which included time spent in counseling the patient/family regarding diagnosis and treatment plan as listed above, goals of care, and symptom management. Case was discussed with nursing staff,
specialists, and care coordinators/case management. All labs and imaging personally reviewed by me. Remainder the time spent in detailed review of previous records, lab data, imaging, and other medical provider documentation.
Original Note:
Today's Communication/Plan
-
Cardiology consult pending, cam boot
Assessment / Plan
Assessment / Plan
Impression:
88-year-old female with past medical history of diastolic heart failure, atrial fibrillation and ITP with right ankle fracture
Plan:
#diastolic Heart failure exacerbation
-strict I &O
-daily weight
-fluid restriction
-ECHO
-cardiology consulted
-BNP 9120
-chest x ray with mild to moderate CHF
-Lasix 40mg iv bid
#right ankle fracture s/p fall
-PT/OT consult
-splint in place
-oxy and Dilaudid prn for pain
-ankle X ray with Suspect nondisplaced fracture of the distal fibula.
-x ray of spine with S-shaped curvature of the thoracolumbar spine. Moderate multilevel degenerative changes of the thoracic spine without convincing evidence for acute fracture or subluxation. Chronic L1 height loss. Soft tissues grossly
unremarkable.
-head CT with No acute intracranial abnormality noted.No acute fracture or subluxation of the cervical spine. Multilevel degenerative changes of the cervical spine.
-cervical spine CT with No acute intracranial abnormality noted.No acute fracture or subluxation of the cervical spine. Multilevel degenerative changes of the cervical spine.
-Orthopedics. May be weightbearing as tolerated with boot and assistance for fall precautions x 4 weeks
#COVID (+)
Covid precautions
Consider plaxlovid
#anemia of chronic disease
-hgb stable at 10.0
-no active bleeding
-ctm
#Chronic ITP
-gets N plate shot as outpatient
-Drop in platelets from 144 to 105 since admission.
-Monitor platelets closely
#Permanent Atrial Fibrillation
- Stable / rate controlled
- atenolol continued
- Not on OAC given underlying ITP / bleeding risks.
#CAD
- Stable. s/p balloon angioplasty in the past without stent
#Chronic Lymphedema
- Stable. Continue compression .
- Monitor for any new changes.
#essential htn
-BP stable
-valsartan continued with hold parameter
#DVT Prophylaxis: SCDs.
Code Status: Full
Anticipated Discharge: 24 - 48 hours
Subjective/Interval History
-
Date of Service: June 21, 2024
Objective Data
-
Labs:
Laboratory Results
06/21/24 06/21/24
06:43 06:44
WBC 4.6 L
Hgb 10.0 L
Hct 30.5 L
Plt Count 105 L D
Sodium 141 143
Potassium 3.7 3.7
Chloride 104 103
Carbon Dioxide 27 27
BUN 15 15
Creatinine 0.8 0.8
Glucose 105 H 104 H
Calcium 8.9 8.8
Vital Signs:
Vital Signs
Temp Pulse Resp BP Pulse Ox
98.6 F 79 18 187/83 98
06/21/24 07:58 06/21/24 10:03 06/21/24 07:58 06/21/24 10:03 06/21/24 07:58
Review of Systems
-
Unable to obtain full review of systems at this time due to: Other (Patient is hard of hearing and cannot understand anything with the masks. Everything needs to be written on a white board. )
History Source: Patient
Respiratory: Reports Cough
Cardiac: Reports No Symptoms
Abdomen/GI: Reports No Symptoms
Genitourinary: Reports Difficulty Voiding
Neuro: Reports No Symptoms
Physical Exam
-
General: Well Developed and Appears in Distress
Respiratory: Clear to Auscultation
Cardiac: Irregular Rhythm
GI: Soft, Nontender and Nondistended
Skin: Warm and Dry
Neuro: AO x 3
Psych: Anxious
[2024-06-21] MEDS: MAGNESIUM SULFATE 50 IV (11:13)
[2024-06-21] MEDS: KCL 10 MEQ PO (11:14)
--- NOTE | 2024-06-21 12:21 | CON.CAR ---
Addendum entered and electronically signed by Tobias Mcguire MD 06/24/24 09:01:
Late entry for service provided 06/21/24, 1pm.
88 yo female with PMH of chronic HFPEF, peremanent A fib (declined OAC) admitted with right ankle fracture. Also noted to have acute on chronic HFPEF with edema and SOB. Exam with irregular rhythm, II/ systolic murmur at apex, trace LE edema. Cr
0.8.
Continue IV lasix. Check echo.
Original Note:
Consultation
Consultation Request
Date/Time Consultation Requested: 06/21/24 12:30a
Date/Time Consultation Performed: 06/21/24 11:30a
Requesting Provider: YARED Akers
Performing Provider: YARED Crawford for Dr. Mcguire
Reason for Consultation: chest pain
Medical History
-
Chief Complaint: fall, right ankle fracture
History of Present Illness:
Mrs. Joseph is an 88 yo female with permanent Afib (declines OAC), HTN, CAD on angiogram w/o PCI, lymphedema b/l LE, ITP, severe orthostasis, HFpEF, moderate MR, HLD, DM, and h/o L DVT, who presents to the ER after falling trying to get through
[facility]. Imaging revealed right ankle fracture and she is admitted to the hospitalist service. She c/o chest pain and therefore we were consulted. Currently she denies any chest pain. She is COVID + and has acute HFpEF.
She denies any cardiac symptoms currently. As an outpatient this week she noted slow HR at home in the 30s-40s on her BP machine, therefore her atenolol 100mg was reduced to 50mg then stopped. She follows with lymphedema clinic, home VN for
wrapping and wound care center. She feels her LE edema has worsened but has been losing weight at home due to not eating much lately.
Past Medical History
Past Medical History: Other (as above)
Past Surgical History: Other (as above)
Social History
Tobacco: Non-Smoker
Alcohol: None
Personal:
Living: Alone
Family History
Family History: Reviewed & Not Pertinent
Allergies / Home Medications
Allergy/AdvReac Type Severity Reaction Status Date / Time
hydralazine Allergy Mild passing out Verified 06/20/24 16:43
quinapril Allergy Unknown Pharmacy Verified 06/20/24 16:43
to Review
simvastatin Allergy Unknown Pharmacy Verified 06/20/24 16:43
to Review
aspirin Allergy Hives Verified 06/20/24 16:43
diltiazem Allergy Unknown Verified 06/20/24 16:43
rosuvastatin [From Crestor] Allergy Unknown Verified 06/20/24 16:43
�Medication �Instructions �Recorded �Confirmed �Type
furosemide 20 mg tablet 20 mg PO DAILY Fluid 06/01/20 06/20/24 History
retention/Swelling
acetaminophen 500 mg tablet 1,000 mg PO TID Pain 05/25/21 06/20/24 History
(Tylenol Extra Strength)
atenolol 50 mg tablet 50 mg PO HS Blood Pressure 06/20/24 06/20/24 History
cyanocobalamin (vitamin B-12) 1,000 mcg PO HS Supplement 06/20/24 06/20/24 History
1,000 mcg tablet
potassium chloride 10 mEq 10 meq PO NOON Electrolyte 06/20/24 06/20/24 History
capsule,extended release Repletion
valsartan 160 mg tablet 160 mg PO DAILY Blood Pressure 06/20/24 06/20/24 History
Review of Systems
-
History Source: Patient
All other systems: Negative unless noted
Physical Exam
Vital Signs
Temp Pulse Resp BP Pulse Ox
98.2 F 99 18 173/80 96
06/21/24 11:25 06/21/24 11:25 06/21/24 11:25 06/21/24 11:25 06/21/24 11:25
Lab Results
06/21/24 06:43
06/21/24 06:44
Troponin I 0.013 ng/ml 06/20/24 21:50
Hpk-[id number]-[id number] Pept 9120 pg/ml 06/20/24 21:50
Physical Exam
General: Well Developed, Well Nourished and No Apparent Distress
HEENT: Normocephalic, Anicteric and Other (extremely RINCON wearing hearing aid in right ear)
Respiratory: Clear and Crackles (bibasilar)
Cardiac: S1/S2, Irregular Rhythm and Murmur (2/6 CLAUDIA)
Breast: Deferred by me
GI: Soft, Non Tender, Non Distended and Normal Bowel Sounds
Rectal: Deferred by Provider
Genito-urinary: No Costovertebral Tender
Musculoskeletal: No Clubbing, No Cyanosis and Edema (chronic lymphedema)
Skin: Warm and Dry
Neuro: AO x 3
Impression / Plan
-
HFpEF - acute on chronic.
- normal EF, update echo.
- agree with IV Lasix BID.
- monitor daily weights, I&Os, labs.
Chest pain - resolved.
- denies chest pain currently.
- MIBI 2010: anterior scar vs breast artifact, no ischemia.
Bradycardia - she noted rates in the 30s-40s at home, so Atenolol stopped.
- receiving Atenolol 50mg qhs, continue and monitor on tele.
- no bradyarrhythmias or pauses on tele.
Fall with right ankle fracture - acute.
- per ortho and hospitalist.
ITP - chronic.
- followed by heme as outpatient.
Lymphedema - chronic.
- IV Lasix and wraps.
- lymphedema clinic/VN.
+ COVID - isolation and management per hospitalist.
Data Reviewed
-
EKG: Tracing Personally Visualized and interpreted (Afib with PVCs 75 bpm)
Radiology: Report Reviewed by me (CXR: mild to moderate CHF)
Medical Tests (Nuc Med, Echo etc): Report Reviewed by me (echo 03/2014: EF 60%, mild cLVH, moderate MR, mild TR, PASP 38-43mmHg.)
Labs: Labs Reviewed by me
Old Records: Reviewed
[2024-06-21] MEDS: NORVASC 5 MG PO (12:56)
--- NOTE | 2024-06-21 13:13 | CON.ORTHO ---
Consultation
-
Date/Time Consultation Requested: 06/21/2024 0025
Date/Time Consultation Performed: 06/21/2024 0800
Requesting Provider: Jocelyne VAIL
Performing Provider: ASHLEE Crawford, Dr. Samir Benton
Reason for Consultation: R ankle fracture
Consultation - Orthopedics
History
88-year-old female admitted to [facility] after a mechanical fall from standing in a revolving door sustained yesterday with swelling of her lateral right ankle and difficulty with bearing weight. She was seen at [place] emergency room
with x-rays showing concern for a distal fibula fracture noted to have exacerbation of her congestive heart failure. Denies other injury sustained
Allergies / Home Medications
Past Medical History:
ITP
cad
diastolic heart failure
htn
osteoarthritis
lymphedema
atrial fib
left breast ca
Past Surgical History:
cholecystectomy
right breast lumpectomy
Social History
Tobacco: Non-smoker
Alcohol: None
Drug: None
Personal: Single
Living: With Family
Family History
Family History: Not pertinent
Allergy/AdvReac Type Severity Reaction Status Date / Time
hydralazine Allergy Mild passing out Verified 06/20/24 16:43
quinapril Allergy Unknown Pharmacy Verified 06/20/24 16:43
to Review
simvastatin Allergy Unknown Pharmacy Verified 06/20/24 16:43
to Review
aspirin Allergy Hives Verified 06/20/24 16:43
diltiazem Allergy Unknown Verified 06/20/24 16:43
rosuvastatin [From Crestor] Allergy Unknown Verified 06/20/24 16:43
�Medication �Instructions �Recorded
furosemide 20 mg tablet 20 mg PO DAILY Fluid 06/01/20
retention/Swelling
acetaminophen 500 mg tablet 1,000 mg PO TID Pain 05/25/21
(Tylenol Extra Strength)
atenolol 50 mg tablet 50 mg PO HS Blood Pressure 06/20/24
cyanocobalamin (vitamin B-12) 1,000 mcg PO HS Supplement 06/20/24
1,000 mcg tablet
potassium chloride 10 mEq 10 meq PO NOON Electrolyte 06/20/24
capsule,extended release Repletion
valsartan 160 mg tablet 160 mg PO DAILY Blood Pressure 06/20/24
Vital Signs / Lab Results
Temp Pulse Resp BP Pulse Ox
98.2 F 99 18 173/80 96
06/21/24 11:25 06/21/24 11:25 06/21/24 11:25 06/21/24 11:25 06/21/24 11:25
06/21/24 06:43
06/21/24 06:44
Imaging: X-rays taken of the right ankle limited projections however to demonstrate intact ankle mortise. Possible area of cortical disruption slightly distal of the ankle syndesmosis consistent with nondisplaced distal fibula fracture. Soft
tissue swelling noted laterally
Physical exam
Examination of the right lower extremity shows soft tissue swelling about the lateral ankle overlying the lateral malleolus with focal tenderness. Neurovascularly intact L5-S1. EHL and tibialis anterior intact. Nontender no swelling over the
medial malleolus
Assessment / Plan
88-year-old female with mechanical fall DOI 20 June 2023 but clinical presentation and x-rays consistent with a nondisplaced distal fibula fracture. Her fracture areas most consistent with a [place] a ankle fracture pattern which would be stable.
Imaging was shown and reviewed with the patient.
-She may be weightbearing as tolerated utilizing a cam boot and assistive devices. PT/OT/discharge planning
-She may come out of the boot to work on range of motion as tolerated.
Recommend outpatient follow-up in 1 to 2 weeks for repeat clinical exam and x-rays with our podiatry team to monitor for interval displacement and evaluate her ankle mortise radiographically
Orthopedic surgery will follow peripherally at this time; please reengage with further questions or concerns
--- NOTE | 2024-06-21 15:04 | CM ---
CM reviewed chart, patient Covid positive. CM placed call to patients room to complete initial assessment, no response. CM placed call to patients daughter, Zhane, left voicemail requesting return call regarding assessment questions. CM will watch
for PT/OT recommendations when able. CM will continue to follow for all discharge planning needs.
Plan; will depend on PT/OT recommendations.
[2024-06-21 16:26] LABS: Magnesium 1.4 mg/dl (1.6-2.3)
[2024-06-21] MEDS: VITAMIN B-12 1000 MCG PO (22:40)
[2024-06-21] MEDS: TENORMIN 50 MG PO (22:40)
[2024-06-22] VITALS (8 sets, daily range): BP systolic 137–159; BP diastolic 51–83
[2024-06-22 07:54] LABS: ALT (SGPT) < 10 U/L (0-35); AST (SGOT) 16 U/L (14-36); Albumin 3.3 g/dl (3.5-5.0); Alkaline Phosphatase 71 U/L (38-126); Blood Urea Nitrogen 18 mg/dl (7-17); Calcium 8.2 mg/dl (8.4-10.2); Carbon Dioxide 30 mmol/L (22-30); Chloride 99 mmol/L (98-107); Estimated Creatinine Clearance 36 ml/min; Glucose 96 mg/dl (70-99); Potassium 3.1 mmol/L (3.5-5.1); Sodium 139 mmol/L (135-145); Total Bilirubin 1.4 mg/dl (0.2-1.3); Total Protein 5.6 g/dl (6.3-8.2); eGFR > 60.00
[2024-06-22 08:07] LABS: % Eosinophils 5.3 % (0-6); % Immature Granulocytes 0.5 % (0-0.5); % Lymphocytes 20.8 % (20.5-51.1); % Monocytes 16.7 % (1.7-9.3); % Neutrophils 55.7 % (42.2-75.2); Absolute Eosinophils 0.2 10^3/uL (0-0.7); Absolute Lymphocytes 0.9 10^3/uL (1.2-3.4); Absolute Monocytes 0.7 10^3/uL (0.1-0.6); Absolute Neutrophils 2.3 10^3/uL (1.4-6.5); Hematocrit 31.6 % (37.0-47.0); Hemoglobin 10.3 g/dL (12.0-16.0); Mean Corp Hgb Conc. 32.6 g/dL (33.0-37.0); Mean Corpuscular Hgb 26.5 pg (27.0-31.0); Mean Corpuscular Volume 81.4 fL (81.0-99.0); Nucleated Red Blood Cells % 0 %; Platelet Count 89 10^3/uL (130-400); Red Blood Cell Count 3.88 10^6/uL (4.20-5.40); Red Cell Dist. Width 14.8 % (11.5-14.5); White Blood Cell Count 4.2 10^3/uL (4.8-10.8)
[2024-06-22] MEDS: TYLENOL 1000 MG PO ×3 (09:41→22:50)
[2024-06-22] MEDS: SENOKOT PO ×3 (09:41→21:12)
[2024-06-22] MEDS: DIOVAN 160 MG PO (09:41)
[2024-06-22] MEDS: COLACE 100 MG PO (09:42)
[2024-06-22] MEDS: NORVASC 10 MG PO (09:42)
[2024-06-22] MEDS: LASIX 40 MG IV ×2 (09:43→17:19)
[2024-06-22] MEDS: FLUSH (NSS) 2 FLUSH IV ×2 (09:44→17:21)
--- NOTE | 2024-06-22 09:48 | W.PN.HOSP.TC ---
Addendum entered and electronically signed by Maikel Fritz MD 06/22/24 10:51:
I saw and evaluated the patient. I reviewed the resident�s note and agree with findings and plan as documented in the resident�s note.
No new complaints.
Gen: NAD, Awake and alert
Eyes: EOMI, PERRLA, no scleral icterus.
Neck: supple.
CV: remains irreg/irreg, +S1/S2, no m/r/g.
Resp: CTAB
Abd: +BS, soft, NT, ND
Skin: No rashes. trace LE edema
Neuro: CN 2-12 intact, non-focal.
Psych: Normal mood and affect.
CXR: Mild to moderate CHF.
Echo: Normal biventricular size and systolic function without regional wall motion
abnormality. Estimated LVEF 60-65%.
Mild/moderate mitral regurgitation.
Trace aortic regurgitation.
Mild tricuspid regurgitation. Severely elevated PASP. Estimated pulmonary
artery pressure of 61 mmHg. Assuming a right atrial pressure of 15 mmHg.
Compared to 05/05/16: MR has progressed from mild to mild/moderate. PASP has
increased from 45 mmHg to 61 mmHg.
Acute HFpEF:
-echo above
-cont IV lasix
-daily wts, I/Os
R ankle fracture s/p fall:
-appreciate ortho. CAM boot, WBAT
-no surgical intervention indicated at this time
Essential HTN with hypertensive urgency:
-Norvasc started by pt refusing
-cont Diovan/Atenolol
Original Note:
Today's Communication/Plan
-
Continue Lasix, PT/OT
Assessment / Plan
Assessment / Plan
Impression:
88-year-old female with past medical history of diastolic heart failure, atrial fibrillation and ITP with right ankle fracture
Plan:
#acute on chronic HFpEF
-strict I &O
-daily weight
-fluid restriction
-ECHO
-BNP 9120
-chest x ray with mild to moderate CHF
-Cardiology recommends continue Lasix twice daily, continue atenolol 50
#right ankle fracture s/p fall
-splint in place
-oxy and Dilaudid prn for pain
-ankle X ray with Suspect nondisplaced fracture of the distal fibula.
-x ray of spine with S-shaped curvature of the thoracolumbar spine. Moderate multilevel degenerative changes of the thoracic spine without convincing evidence for acute fracture or subluxation. Chronic L1 height loss. Soft tissues grossly
unremarkable.
-head CT with No acute intracranial abnormality noted.No acute fracture or subluxation of the cervical spine. Multilevel degenerative changes of the cervical spine.
-cervical spine CT with No acute intracranial abnormality noted.No acute fracture or subluxation of the cervical spine. Multilevel degenerative changes of the cervical spine.
-Orthopedics. May be weightbearing as tolerated with boot and assistance for fall precautions x 4 weeks
-PT/OT following
#COVID (+)
Covid precautions
Consider plaxlovid
#anemia of chronic disease
-hgb stable at 10.0
-no active bleeding
-ctm
#Chronic ITP
-gets N plate shot as outpatient
-Drop in platelets from 144 to 89 since admission.
-Monitor platelets closely
#Permanent Atrial Fibrillation
- Stable / rate controlled
- atenolol continued
- Not on OAC given underlying ITP / bleeding risks.
#CAD
- Stable. s/p balloon angioplasty in the past without stent
#Chronic Lymphedema
- Stable. Continue compression .
- Monitor for any new changes.
#essential htn
-Elevated BP
-Added 10mg amlodipine daily and hydralizine 10 mg PRN despite allergy. Nurse advised to watch pt closely and to keep pt in bed upon first dosing.
-Pt refuses to bp meds
-valsartan continued with hold parameter
#DVT Prophylaxis: SCDs.
Code Status: Full
Anticipated Discharge: 24 - 48 hours
Subjective/Interval History
-
Date of Service: June 22, 2024
Patient feels well, just complains of cough and fear of falling. Patient very afraid to fall again.
Objective Data
-
Labs:
Laboratory Results
06/22/24 06/22/24
07:16 19:46
WBC 4.2 L
Hgb 10.3 L
Hct 31.6 L
Plt Count 89 L
Sodium 139 Pending
Potassium 3.1 L Pending
Chloride 99 Pending
Carbon Dioxide 30 Pending
BUN 18 H Pending
Creatinine 0.9 Pending
Glucose 96 Pending
Calcium 8.2 L Pending
Total Bilirubin 1.4 H
AST 16
ALT < 10
Alkaline Phosphatase 71
Vital Signs:
Vital Signs
Temp Pulse Resp BP Pulse Ox
98.6 F 86 18 158/63 93
06/22/24 07:00 06/22/24 07:00 06/22/24 07:00 06/22/24 07:00 06/22/24 07:00
I&O
06/21/24 06/22/24 06/23/24
06:59 06:59 06:59
Intake Total 1200 / 1200
Output Total 700 / 700
Balance 500 / 500
Review of Systems
-
History Source: Patient
EENT: Reports No Symptoms Reported
Respiratory: Reports Cough; Denies Trouble Breathing
Cardiac: Reports No Symptoms
Abdomen/GI: Reports No Symptoms
Genitourinary: Reports No Symptoms
Musculoskeletal: Reports Other (Right ankle pain)
Neuro: Reports No Symptoms
Physical Exam
-
General: Well Developed and No Apparent Distress
Respiratory: Clear to Auscultation
Cardiac: Regular Rhythm and S1/S2
GI: Soft, Nontender and Nondistended
Skin: Warm and Dry
Neuro: AO x 3
Psych: Calm
[2024-06-22 10:40] LABS: Magnesium 1.8 mg/dl (1.6-2.3)
[2024-06-22] MEDS: KCL ELIXIR 40 MEQ PO (10:42)
[2024-06-22] MEDS: FLOMAX 0.4 MG PO (12:47)
[2024-06-22] MEDS: KCL 10 MEQ PO (12:47)
--- NOTE | 2024-06-22 14:37 | CM ---
Reviewed chart, placed a call to patient's daughter to hopefully obtain information for assessment, however there was no answer. Left a voice mail message and requested return call. Provided CM dept. #.
Placed a call to patient's cell but there was no answer. Placed a call to patient's room but there was also no answer.
Plan: Case management will continue to follow and assist with discharge planning.
[2024-06-22 20:30] LABS: Blood Urea Nitrogen 21 mg/dl (7-17); Calcium 8.3 mg/dl (8.4-10.2); Carbon Dioxide 31 mmol/L (22-30); Chloride 98 mmol/L (98-107); Estimated Creatinine Clearance 30 ml/min; Glucose 146 mg/dl (70-99); Potassium 3.9 mmol/L (3.5-5.1); Sodium 138 mmol/L (135-145); eGFR 48.63
[2024-06-22] MEDS: COLACE PO (21:12)
[2024-06-22] MEDS: TENORMIN 50 MG PO (22:52)
[2024-06-22] MEDS: VITAMIN B-12 1000 MCG PO (22:52)
--- NOTE | 2024-06-23 05:51 | PTCARENOTE ---
Spoke at length with pt via pen and paper. glasses and on SHEA bedside. Pt concerned that No MDs have discussed her condition with her. I advised her to ask if staff could speak -to -text into her notes on phone or on their own devices to aid in ease
of communication. Pt was washed, VS taken stable. Pre and post residual bladder scan performed. Pt is urinating using purewick, but does retain. She is very concerned about this. BS for 375, pt reclined and started urinating with gentle pressure
from US. Post residual is BS 206. Pt concerned that sputum is green. Sputum cup provided for sample. Pt HR continues to drop to 30's/ 40's when asleep. Asymptomatic, does not sustain for long periods. Pt still very anxious about getting out of bed,
pt tearful often, speaks about recently departed often.
[2024-06-23 06:00] VITALS: BMI 24.9
[2024-06-23 07:29] VITALS: BP 156/76
--- NOTE | 2024-06-23 08:06 | W.PN.CD ---
Today's Communication / Plan
-
-Switch atenolol to Coreg 12.5 mg twice a day
Impression / Plan
-
Mrs. Joseph is an 88 yo female with permanent Afib (declines OAC), HTN, CAD on angiogram w/o PCI, lymphedema b/l LE, ITP, severe orthostasis, HFpEF, moderate MR, HLD, DM, and h/o L DVT, who presents to the ER after falling trying to get through
revolving [facility].
HFpEF - acute on chronic.
- normal EF,
- Echo 06/21/2024 LVEF 60% with pulmonary pressure at 60 mmHg.
- Could be related to heart failure with fluid overload.
- Likely improved now
- agree with IV Lasix BID.
- monitor daily weights, I&Os, labs.
Hypertension
-Somewhat poorly controlled at this time. Currently on Norvasc 10/Diovan 160 and atenolol 50
-Will discontinue atenolol 50 mg once a day and switch to Coreg 12.5 mg twice a day
Chest pain - resolved.
- denies chest pain currently.
- MIBI 2010: anterior scar vs breast artifact, no ischemia.
Bradycardia
- Atenolol held but resumed now
- receiving Atenolol 50mg qhs, continue and monitor on tele.
- no bradyarrhythmias or pauses on tele. Toprol might be a better choice for her.
- Can switch to Coreg 12.5 mg BID
- no indication for PPM
Fall with right ankle fracture - acute.
- per ortho and hospitalist.
- No surgical intervention needed. CAM boot
ITP - chronic.
- followed by [facility] as outpatient.
Lymphedema - chronic.
- IV Lasix and wraps.
- lymphedema clinic/VN.
Physical Exam
Vital Signs/Labs
Vital Signs
Temp Pulse Resp BP Pulse Ox
98.4 F 72 18 154/74 98
06/22/24 23:30 06/22/24 23:30 06/22/24 23:30 06/22/24 23:30 06/22/24 23:30
06/22/24 06/23/24 06/24/24
06:59 06:59 06:59
Actual Weight 63.758 kg
Magnesium 1.8 mg/dl (1.6-2.3) 06/22/24 07:16
06/20/24
21:50
Oyu-Y-Kdsxoqqrrlc Pept 9120
LAB Results
06/20/24
21:50
Troponin I 0.013
Physical Exam
Constitutional: No acute distress and Comfortable
EENT: Anicteric and Moist mucous membranes
Cardiovascular: Rhythm & rate is regular, Pedal edema is absent and JVD pressure is normal
Respiratory: Respiratory effort normal and Wheeze Absent
GI: Soft and Normal bowel sounds
Data Reviewed
-
Date of Service: June 23, 2024
Medical Decision Making: Reviewed Test Results, Independent Historian Assessment and Test Interpretation
EKG: Tracing Personally Visualized and interpreted
Echo: Report Reviewed by me
Labs: Labs Reviewed by me
Old Records: Reviewed
[2024-06-23 08:31] LABS: ALT (SGPT) < 10 U/L (0-35); AST (SGOT) 17 U/L (14-36); Albumin 3.3 g/dl (3.5-5.0); Alkaline Phosphatase 72 U/L (38-126); Blood Urea Nitrogen 22 mg/dl (7-17); Calcium 8.4 mg/dl (8.4-10.2); Carbon Dioxide 29 mmol/L (22-30); Chloride 100 mmol/L (98-107); Direct Bilirubin 0.4 mg/dl (0.0-0.4); Estimated Creatinine Clearance 36 ml/min; Glucose 98 mg/dl (70-99); Magnesium 1.7 mg/dl (1.6-2.3); Potassium 3.9 mmol/L (3.5-5.1); Sodium 138 mmol/L (135-145); Total Bilirubin 1.1 mg/dl (0.2-1.3); Total Protein 5.7 g/dl (6.3-8.2); eGFR > 60.00
[2024-06-23] MEDS: COLACE PO ×3 (08:43→21:59)
[2024-06-23] MEDS: SENOKOT PO ×3 (08:43→21:59)
[2024-06-23] MEDS: DIOVAN 160 MG PO (08:44)
--- NOTE | 2024-06-23 08:44 | W.PN.HOSP.TC ---
Addendum entered and electronically signed by Maikel Fritz MD 06/23/24 10:12:
I saw and evaluated the patient. I reviewed the resident�s note and agree with findings and plan as documented in the resident�s note.
No new complaints.
Gen: NAD, Awake and alert
Eyes: EOMI, PERRLA, no scleral icterus.
Neck: supple.
CV: remains irreg/irreg, +S1/S2, no m/r/g.
Resp: CTAB
Abd: +BS, soft, NT, ND
Skin: No rashes. trace LE edema
Neuro: CN 2-12 intact, non-focal.
Psych: Normal mood and affect.
CXR: Mild to moderate CHF.
Echo: Normal biventricular size and systolic function without regional wall motion
abnormality. Estimated LVEF 60-65%.
Mild/moderate mitral regurgitation.
Trace aortic regurgitation.
Mild tricuspid regurgitation. Severely elevated PASP. Estimated pulmonary
artery pressure of 61 mmHg. Assuming a right atrial pressure of 15 mmHg.
Compared to 05/05/16: MR has progressed from mild to mild/moderate. PASP has
increased from 45 mmHg to 61 mmHg.
Acute HFpEF:
-echo above
-cont IV lasix
-cont Atenolol (will discuss changing to Coreg or Toprol XL with cardiology)
-daily wts, I/Os
R ankle fracture s/p fall:
-appreciate ortho. CAM boot, WBAT
-no surgical intervention indicated at this time
Essential HTN with hypertensive urgency:
-cont Norvasc/Diovan/Atenolol
Original Note:
Today's Communication/Plan
-
Continue IV lasix, continue PT/OT
Assessment / Plan
Assessment / Plan
Impression:
88-year-old female with past medical history of diastolic heart failure, atrial fibrillation and ITP with right ankle fracture
Plan:
#acute on chronic HFpEF
-strict I &O
-daily weight
-fluid restriction
-ECHO LVEF 60-65%. Mild-mod regurgitation, trace aortic regurg, mild tricuspid regurg
-BNP 9120
-chest x ray with mild to moderate CHF
-Cardiology recommends continue Lasix twice daily, continue atenolol 50
#right ankle fracture s/p fall
-splint in place
-oxy and Dilaudid prn for pain
-ankle X ray with Suspect nondisplaced fracture of the distal fibula.
-x ray of spine with S-shaped curvature of the thoracolumbar spine. Moderate multilevel degenerative changes of the thoracic spine without convincing evidence for acute fracture or subluxation. Chronic L1 height loss. Soft tissues grossly
unremarkable.
-head CT with No acute intracranial abnormality noted.No acute fracture or subluxation of the cervical spine. Multilevel degenerative changes of the cervical spine.
-cervical spine CT with No acute intracranial abnormality noted.No acute fracture or subluxation of the cervical spine. Multilevel degenerative changes of the cervical spine.
-Orthopedics. May be weightbearing as tolerated with boot and assistance for fall precautions x 4 weeks
-PT/OT following
#Essential hypertension with hypertensive urgency
Norvasc started but patient refused. re-visited topic with patient and she agreed to take it.
Added hydralizine 10 mg PRN despite allergy. Nurse advised to watch pt closely and to keep pt in bed upon first dosing.
#COVID (+)
Covid precautions
#anemia of chronic disease
-hgb stable at 10.0
-no active bleeding
-ctm
#Chronic ITP
-gets N plate shot as outpatient
-Drop in platelets since admission.
-Monitor platelets closely
#Permanent Atrial Fibrillation
- Stable / rate controlled
- atenolol continued
- Not on OAC given underlying ITP / bleeding risks.
-Cardiology following
#CAD
- Stable. s/p balloon angioplasty in the past without stent
#Chronic Lymphedema
- Stable. Continue compression .
- Monitor for any new changes.
#essential htn
#DVT Prophylaxis: SCDs.
Code Status: Full
Anticipated Discharge: 24 - 48 hours
Subjective/Interval History
-
Date of Service: June 23, 2024
Objective Data
-
Labs:
Laboratory Results
06/23/24
06:57
WBC Pending
Hgb Pending
Hct Pending
Plt Count Pending
Sodium 138
Potassium 3.9
Chloride 100
Carbon Dioxide 29
BUN 22 H
Creatinine 0.9
Glucose 98
Calcium 8.4
Total Bilirubin 1.1
AST 17
ALT < 10
Alkaline Phosphatase 72
Vital Signs:
Vital Signs
Temp Pulse Resp BP Pulse Ox
97.7 F 68 18 156/76 97
06/23/24 07:29 06/23/24 07:29 06/23/24 07:29 06/23/24 07:29 06/23/24 07:29
I&O
06/22/24 06/23/24 06/24/24
06:59 06:59 06:59
Intake Total 1200 / 1200 1250 / 1250
Output Total 700 / 700 900 / 900
Balance 500 / 500 350 / 350
Review of Systems
-
History Source: Patient
Respiratory: Reports Cough (slight cough)
Cardiac: Reports No Symptoms
Abdomen/GI: Reports No Symptoms
Genitourinary: Reports Incontinence (incontinence with cough) and Difficulty Voiding (difficulty when tries to urinate voluntarily)
Musculoskeletal: Reports Edema
Skin: Reports No Symptoms
Neuro: Reports No Symptoms
Physical Exam
-
General: Well Developed
Respiratory: Clear to Auscultation
Cardiac: Irregular Rhythm
GI: Soft, Nontender and Nondistended
Musculoskeletal: Edema, Right Lower Extrem and Edema, Left Lower Extrem
Neuro: AO x 3
Psych: Anxious
[2024-06-23] MEDS: FLOMAX 0.4 MG PO (08:46)
[2024-06-23] MEDS: TYLENOL 1000 MG PO ×3 (08:46→21:43)
[2024-06-23] MEDS: NORVASC 10 MG PO (08:46)
[2024-06-23] MEDS: LASIX 40 MG IV ×2 (08:47→16:27)
[2024-06-23 09:01] LABS: % Basophils 1.1 % (0-2); % Eosinophils 3.5 % (0-6); % Immature Granulocytes 0.7 % (0-0.5); % Lymphocytes 18.5 % (20.5-51.1); % Monocytes 14.3 % (1.7-9.3); % Neutrophils 61.9 % (42.2-75.2); Absolute Basophils 0.1 10^3/uL (0-0.2); Absolute Eosinophils 0.2 10^3/uL (0-0.7); Absolute Lymphocytes 0.8 10^3/uL (1.2-3.4); Absolute Monocytes 0.7 10^3/uL (0.1-0.6); Absolute Neutrophils 2.8 10^3/uL (1.4-6.5); Hematocrit 32.6 % (37.0-47.0); Hemoglobin 10.7 g/dL (12.0-16.0); Mean Corp Hgb Conc. 32.8 g/dL (33.0-37.0); Mean Corpuscular Hgb 26.9 pg (27.0-31.0); Mean Corpuscular Volume 81.9 fL (81.0-99.0); Nucleated Red Blood Cells % 0 %; Platelet Count 87 10^3/uL (130-400); Red Blood Cell Count 3.98 10^6/uL (4.20-5.40); Red Cell Dist. Width 14.6 % (11.5-14.5); White Blood Cell Count 4.6 10^3/uL (4.8-10.8)
--- NOTE | 2024-06-23 09:55 | CM ---
Spoke with PT/OT yesterday. Patient is recommended for SNF level of care. Placed another call to patient's daughter however had to leave a voice mail message. Strongly encouraged return call as the patient will need a SNF. Will talk to the nurses as
well to determine if they have seen any family.
Plan: Case management will continue to follow and assist with discharge planning. SNF, will try to get in touch with patient's family.
[2024-06-23 11:17] VITALS: BP 150/68
[2024-06-23] MEDS: COREG 12.5 MG PO ×2 (11:36→21:43)
[2024-06-23] MEDS: KCL 10 MEQ PO (11:37)
[2024-06-23] MEDS: ROBITUSSIN 200 MG PO (13:36)
[2024-06-23 15:00] VITALS: BP 120/51
[2024-06-23 16:43] VITALS: BP 125/56; PULSE 50; O2SAT 100
[2024-06-23 19:48] VITALS: BP 107/42
[2024-06-23] MEDS: VITAMIN B-12 1000 MCG PO (21:43)
[2024-06-24] VITALS (9 sets, daily range): BP systolic 100–149; BP diastolic 46–78; PULSE 58–75; O2SAT 97; BMI 24.5
[2024-06-24 08:23] LABS: % Basophils 0.8 % (0-2); % Eosinophils 2.9 % (0-6); % Immature Granulocytes 0.8 % (0-0.5); % Lymphocytes 20.6 % (20.5-51.1); % Monocytes 13.1 % (1.7-9.3); % Neutrophils 61.8 % (42.2-75.2); Absolute Eosinophils 0.1 10^3/uL (0-0.7); Absolute Monocytes 0.6 10^3/uL (0.1-0.6); Absolute Neutrophils 2.9 10^3/uL (1.4-6.5); Hematocrit 29.9 % (37.0-47.0); Hemoglobin 9.7 g/dL (12.0-16.0); Mean Corp Hgb Conc. 32.4 g/dL (33.0-37.0); Mean Corpuscular Hgb 26.5 pg (27.0-31.0); Mean Corpuscular Volume 81.7 fL (81.0-99.0); Nucleated Red Blood Cells % 0 %; Platelet Count 76 10^3/uL (130-400); Red Blood Cell Count 3.66 10^6/uL (4.20-5.40); Red Cell Dist. Width 14.6 % (11.5-14.5); White Blood Cell Count 4.8 10^3/uL (4.8-10.8)
[2024-06-24 08:34] LABS: Blood Urea Nitrogen 29 mg/dl (7-17); Calcium 8.2 mg/dl (8.4-10.2); Carbon Dioxide 31 mmol/L (22-30); Chloride 99 mmol/L (98-107); Estimated Creatinine Clearance 30 ml/min; Glucose 97 mg/dl (70-99); Potassium 3.9 mmol/L (3.5-5.1); Sodium 138 mmol/L (135-145); eGFR 48.63
--- NOTE | 2024-06-24 09:00 | PTCARENOTE ---
Communicated with ID during shift. Pt ok to come off Respiratory Illness precautions and go on Standard precautions.
--- NOTE | 2024-06-24 09:26 | W.PN.CD ---
Addendum entered and electronically signed by Tobias Mcguire MD 06/24/24 11:50:
88 yo female with PMH of chronic HFPEF, permanent A fib (declined OAC) admitted with right ankle fracture. Also noted to have acute on chronic HFPEF with edema and SOB. Exam with irregular rhythm, II/ systolic murmur at apex, trace LE edema. Cr
1.1.
She has improved s/p IV lasix. Transition to lasix 40mg PO daily tomorrow, with BMP next week.
Atenolol was changed to coreg this admission.
Please call us back with additional questions.
Original Note:
Today's Communication / Plan
-
continue current BP meds.
plan for Lasix 40mg PO daily at d/c, close monitoring of weight and titrate as needed.
Impression / Plan
-
Mrs. Joseph is an 88 yo female with permanent Afib (declines OAC), HTN, CAD on angiogram w/o PCI, lymphedema b/l LE, ITP, severe orthostasis, HFpEF, moderate MR, HLD, DM, and h/o L DVT, who presents to the ER after falling [facility]
HFpEF - acute on chronic.
- normal EF.
- Echo 06/21/2024 LVEF 60% with pulmonary pressure at 60 mmHg.
- improved with diuresis IV.
-would increase outpatient Lasix dose to 40mg daily and monitor closely for titration.
- monitor daily weights, I&Os, labs.
Hypertension - improved with medication changes.
- tolerating Coreg 12.5mg BID.
- continue Norvasc and Diovan as well.
Chest pain - resolved.
- denies chest pain currently.
- MIBI 2010: anterior scar vs breast artifact, no ischemia.
Bradycardia
- Atenolol switched to Coreg 12.5mg BID.
- no significant bradycardia or pauses noted on tele.
- no indication for PPM
Fall with right ankle fracture - acute.
- per ortho and hospitalist.
- No surgical intervention needed. CAM boot, SNF.
ITP - chronic.
- followed by heme as outpatient.
Lymphedema - chronic.
- IV Lasix and wraps.
- lymphedema clinic/VN.
Physical Exam
Vital Signs/Labs
Vital Signs
Temp Pulse Resp BP Pulse Ox
98.1 F 71 16 149/78 94
06/24/24 07:00 06/24/24 07:00 06/24/24 07:00 06/24/24 07:00 06/24/24 07:00
06/23/24 06/24/24 06/25/24
06:59 06:59 06:59
Actual Weight 63.758 kg 62.777 kg
06/24/24 07:11
06/24/24 07:11
Magnesium 1.7 mg/dl (1.6-2.3) 06/23/24 06:57
06/20/24
21:50
Txu-T-Ieoxehnilhp Pept 9120
Physical Exam
Constitutional: No acute distress
EENT: Anicteric and Moist mucous membranes
Cardiovascular: Rhythm/rate is irregular and Pedal edema present (b/l lymphedema)
Respiratory: Respiratory effort normal
GI: Soft, Non tender and Normal bowel sounds
Neuro/Psych: AO x 3
Other: Skin (warm, dry)
Data Reviewed
-
Date of Service: June 24, 2024
Medical Decision Making: Reviewed Test Results
EKG: Tracing Personally Visualized and interpreted
Labs: Labs Reviewed by me
Old Records: Reviewed
[2024-06-24] MEDS: NORVASC 10 MG PO (09:31)
[2024-06-24] MEDS: COLACE 100 MG PO (09:31)
[2024-06-24] MEDS: FLOMAX 0.4 MG PO (09:31)
[2024-06-24] MEDS: SENOKOT 17.2 MG PO (09:31)
[2024-06-24] MEDS: TYLENOL 1000 MG PO ×3 (09:32→21:29)
[2024-06-24] MEDS: LASIX 40 MG IV (09:32)
[2024-06-24] MEDS: DIOVAN 160 MG PO (09:51)
[2024-06-24] MEDS: COREG 12.5 MG PO ×2 (09:51→21:29)
[2024-06-24] MEDS: KCL 10 MEQ PO (13:53)
--- NOTE | 2024-06-24 15:03 | CM ---
Reviewed chart, met with patient to obtain information for assessment. Patient stated that she lives alone in a one floor apartment on the second floor with elevator access. She described herself as independent with all of her ADLs, personal care,
dressing, bathing and ambulates with a rollator. Patient stated that she has an aide who comes in 5 hours a day 5 days a week and the aide does her shopping, takes her to appointments, does all the felter tennis balls, cooking and cleaning. Patient
also has family that is close and supportive.
Patient stated that she has had [facility] in the past.
She has been to a SNF but could not recall which one.
Patient has a prescription plan and uses, [facility] on [address] for all of her medications.
Patient's PCP is, Jacques Azevedo.
Patient stated that she is agreeable with the indication on behalf of medical staff that she go to a SNF. She deferred to her daughter, Zhane for choices.
Placed a call to Zhaen who stated that she would like referrals to be sent to: [facility], [facility], and [facility].
Will fax referrals and update patient's daughter. No auth needed for transfer.
Attending and Resident updated.
Plan: Case management will continue to follow and assist with discharge planning. SNF when stable.
[2024-06-24] MEDS: TUMS 1 TABLET PO (18:40)
--- NOTE | 2024-06-24 19:13 | W.PN.HOSP.TC ---
Addendum entered and electronically signed by Tyrel Grissom MD 06/24/24 23:30:
Attending Addendum-
I saw and evaluated the patient. I reviewed the resident�s note and agree with findings and plan as documented in the resident�s note. Sub: feels weak denies SOB Full 12 point ROS reviewed and negative except as documented Exam: Vitals reviewed in
chart GEN-NAD heart irreg irreg Lungs crackles at bases abd soft LE trace edema RLE in boot wiggles toes without issues perfused
#Acute on chronic HFpEF
- Resolved
- strict I &O
- daily weight
- fluid restriction
- ECHO 06/21- LVEF 60-65%.
- transition from IV lasix to PO
#Right ankle fracture s/p fall
-WBAT, cont boot x 4 weeks
-oxy and Dilaudid prn for pain
-nondisplaced fracture of the distal fibula.
-PT/OT following
#Essential hypertension
- atenolol->coreg
- cont amlodipine and valsartan
- stable
#COVID (+)
-Covid precautions full PPE during close contact exams
-pos 06/20- islolate x 10 days
#Anemia of chronic disease
-hgb lower today
-no active bleeding
-ctm repeat CBC in am
#Chronic ITP
-N plate as outpatient
-plts 87->76
-Monitor platelets closely repaet cbc in am
#Permanent Atrial Fibrillation
- Stable / rate controlled
- atenolol ->coreg
- Not on OAC given underlying ITP / bleeding risks.
- Cardiology following
#CAD
- Stable. s/p balloon angioplasty in the past
#Chronic Lymphedema
- Stable. Continue compression .
#DVT Prophylaxis: SCDs.
Code Status: Full
Dispo- DC to SNF in am CM aware
Time spent coordinating care, review of plan of care with resident, personally reviewed records in EMR, med rec, consults, notes, labs, radiology, d/w nursing CM � 54 mins
Original Note:
Today's Communication/Plan
-
Improving with PT/OT
OK to transition to PO Lasix in the AM
Plan for possible Discharge tomorrow to SNF
Assessment / Plan
Assessment / Plan
88-year-old female with PMHx of diastolic heart failure w/ preserved EF, atrial fibrillation, chronic lymphedema and ITP (treated w/ OP N-plat injections) who presented to ED after a fall and was found to have a R ankle fracture
Assessment & Plan:
#Acute on chronic HFpEF
-strict I&Os
-daily weight checks
-fluid restriction
-ECHO LVEF 60-65%. Mild-mod regurgitation, trace aortic regurg, mild tricuspid regurg
-On 06/20 BNP 9120 & CXR showed mild-mod CHF.
-Cardiology recommends switch to Lasix PO 40mg QD in the AM with repeat BMP x1 week
#R Ankle Fracture
#Mechanical Fall
-R Ankle with possible nondisplaced fracture of the distal fibula.
-XR spine S-shaped curve, multilevel degenerative changes w/o evidence for acute fracture. Head CT negative for fracture/acute process
-splint/boot in place
-Tylenol 1000mg, Oxy 5mg Q4 PRN and Dilaudid 0.5mg IV Q4 PRN for pain.
-Orthopedics following: May be weightbearing as tolerated with boot and assistance for fall precautions x 4 weeks
-PT/OT following. Improving with ambulation.
- Need to follow up OP for repeat XR of the R Ankle in 1-2 weeks.
#Essential hypertension with hypertensive urgency
- BP in 24hr 100-140s/50-70s.
- Patient taking Norvasc
- Added hydralizine 10 mg PRN despite allergy. Nurse advised to watch pt closely and to keep pt in bed upon first dosing.
- Cardiology switch Atenolol to Carvedilol 12.5mg.
#Reflux Symptoms
- Ordered Tums PRN
#COVID (+)
- Day 11 since symptom onset.
- Off precautions, lungs sound clear. No new fevers or hypoxia.
#Chronic ITP
-gets N plate shot as outpatient
-Platelets 144, 105, 89, 87, 76.
-no active bleeding
-Monitor platelets closely
#Anemia of Chronic Disease
-hgb stable at 9.7, down from 10.7 yesterday
-no active bleeding
-Will continue to monitor
#Permanent Atrial Fibrillation
-Stable/rate controlled on Carvedilol 12.5mg
-atenolol discontinued as above
-Not on OAC given underlying ITP / bleeding risks.
-Cardiology following
#CAD
- Stable.
#Chronic Lymphedema
-Continue compression.
#Dispo:
- DVT PPx - SCDs
- Code Status - Full Code
- Diet: HF Diet, <2g Sodium
Anticipated Discharge: 24 - 48 hours
Subjective/Interval History
-
No acute overnight events.
Patient is on Day 11 since COVID Sx and is now off precautions. Was finishing PT/OT in the AM when I visited her. She is improving with ambulation. She is still experiencing a non-productive cough and had trouble sleeping the prior night, but is
otherwise well. She was net + 790ml w/ 2 moderate episodes of urination after 1 dose of Lasix in the AM. No shortness of breath. Bradycardic to the mid 40s yesterday w/o symptoms. This morning HR was 71.
Addendum:
Notified in the PM by nurse that she was having reflux like symptoms and was requesting Tums.
Objective Data
-
Labs:
Laboratory Results
06/24/24
07:11
WBC 4.8
Hgb 9.7 L
Hct 29.9 L
Plt Count 76 L
Sodium 138
Potassium 3.9
Chloride 99
Carbon Dioxide 31 H
BUN 29 H
Creatinine 1.1 H
Glucose 97
Calcium 8.2 L
Vital Signs:
Vital Signs
Temp Pulse Resp BP Pulse Ox
97.6 F 52 16 107/46 99
06/24/24 11:00 06/24/24 11:00 06/24/24 11:00 06/24/24 11:00 06/24/24 11:00
I&O
06/23/24 06/24/24 06/25/24
06:59 06:59 06:59
Intake Total 1250 / 1250 1190 / 1190 180 / 180
Output Total 900 / 900 400 / 400
Balance 350 / 350 790 / 790 180 / 180
Review of Systems
-
History Source: Patient
All other systems: Reviewed and negative
Constitutional: Reports No Symptoms
EENT: Reports No Symptoms Reported
Respiratory: Reports Cough (Non-productive)
Cardiac: Reports No Symptoms
Abdomen/GI: Reports No Symptoms
Breast: Reports N/A
Genitourinary: Reports No Symptoms
Musculoskeletal: Reports Other (Pain in the R foot from ankle fracture)
Skin: Reports No Symptoms
Neuro: Reports No Symptoms
Physical Exam
-
General: Well Developed, Well Nourished and No Apparent Distress
HEENT: Normocephalic, Atraumatic, PERRLA and Ears Appear Normal (Blue discoloration on ears; since )
Respiratory: Clear to Auscultation
Cardiac: Regular Rhythm and S1/S2
GI: Soft, Nontender, Nondistended and Normal Bowel Sounds
Musculoskeletal: No Clubbing and No Cyanosis
Skin: Warm
Neuro: Awake, Alert and Oriented
[2024-06-24] MEDS: VITAMIN B-12 1000 MCG PO (21:29)
[2024-06-24] MEDS: COLACE PO (21:30)
[2024-06-24] MEDS: SENOKOT PO (21:30)
[2024-06-25 06:00] VITALS: BMI 24.5
[2024-06-25 06:46] LABS: % Basophils 1.3 % (0-2); % Immature Granulocytes 0.9 % (0-0.5); % Monocytes 14.4 % (1.7-9.3); % Neutrophils 60.4 % (42.2-75.2); Absolute Basophils 0.1 10^3/uL (0-0.2); Absolute Eosinophils 0.1 10^3/uL (0-0.7); Absolute Lymphocytes 0.9 10^3/uL (1.2-3.4); Absolute Monocytes 0.7 10^3/uL (0.1-0.6); Absolute Neutrophils 2.8 10^3/uL (1.4-6.5); Hematocrit 30.2 % (37.0-47.0); Hemoglobin 9.8 g/dL (12.0-16.0); Mean Corp Hgb Conc. 32.5 g/dL (33.0-37.0); Mean Corpuscular Hgb 26.4 pg (27.0-31.0); Mean Corpuscular Volume 81.4 fL (81.0-99.0); Nucleated Red Blood Cells % 0 %; Platelet Count 76 10^3/uL (130-400); Red Blood Cell Count 3.71 10^6/uL (4.20-5.40); Red Cell Dist. Width 14.7 % (11.5-14.5); White Blood Cell Count 4.7 10^3/uL (4.8-10.8)
[2024-06-25 07:04] LABS: Blood Urea Nitrogen 36 mg/dl (7-17); Carbon Dioxide 26 mmol/L (22-30); Chloride 100 mmol/L (98-107); Estimated Creatinine Clearance 25 ml/min; Glucose 112 mg/dl (70-99); Potassium 4.2 mmol/L (3.5-5.1); Sodium 136 mmol/L (135-145)
--- NOTE | 2024-06-25 07:40 | W.PN.HOSP.TC ---
Addendum entered and electronically signed by Tyrel Grissom MD 06/25/24 22:31:
Attending Addendum-
I saw and evaluated the patient. I reviewed the resident�s note and agree with findings and plan as documented in the resident�s note. Sub: very upset 'no body is taking care of me' Full 12 point ROS reviewed and negative except as documented Exam:
Vitals reviewed in chart GEN-NAD heart irreg irreg Lungs crackles at bases abd soft LE trace edema RLE in boot wiggles toes without issues well perfused
#Acute on chronic HFpEF
- Resolved
- strict I &O
- daily weight
- fluid restriction
- ECHO 06/21- LVEF 60-65%.
- transition lasix to PO
#Right Traumatic Ankle fracture
-WBAT, cont boot x 4 weeks
-oxy and Dilaudid prn for pain
-nondisplaced fracture of the distal fibula.
#Essential hypertension
- atenolol->coreg
- cont amlodipine and valsartan
- stable
#COVID (+)
-Covid precautions full PPE during close contact exams
-pos 06/20- islolate x 10 days
#Anemia of chronic disease
-hgb lower today
-no active bleeding
-ctm repeat CBC in am
#Chronic ITP
-N plate as outpatient
-Monitor platelets closely repeat cbc as OP
#Permanent Atrial Fibrillation
- Stable / rate controlled
- atenolol ->coreg
- Not on OAC given underlying ITP / bleeding risks.
- Cardiology following
#CAD
- Stable. s/p balloon angioplasty in the past
#Chronic Lymphedema
- Stable. Continue compression .
#DVT Prophylaxis: SCDs.
Code Status: Full
Dispo- DC to SNF [place] today
Time spent coordinating care, DC planning, review of DC plan of care with resident, transition of care, review of records, med rec/scripts sent electronically, consults, notes, d/w consultants, nursing, family, [place] to accepting patient today, and CM�
40 mins
Original Note:
Today's Communication/Plan
-
Discharging today. Continue on Carvedilol & transition to PO Lasix. Follow up OP with Ortho & Cardiology. DC to [facility].
Assessment / Plan
Assessment / Plan
Brooks is a 88-year-old female with PMHx of diastolic heart failure w/ preserved EF, atrial fibrillation, chronic lymphedema and ITP (treated w/ OP N-plat injections) who presented to ED after a fall and was found to have a R ankle fracture
Assessment & Plan:
##R Ankle Fracture Due to a combination of Trauma and Osteoporosis
#Mechanical Fall
-2013 Bone Densitometry indicates osteoporosis
-R Ankle with possible nondisplaced fracture of the distal fibula.
-XR spine S-shaped curve, multilevel degenerative changes w/o evidence for acute fracture. Head CT negative for fracture/acute process
-splint/boot in place
-Tylenol 1000mg, Oxy 5mg Q4 PRN and Dilaudid 0.5mg IV Q4 PRN for pain.
-Orthopedics following: May be weightbearing as tolerated with boot and assistance for fall precautions x 4 weeks
- Need to follow up OP for repeat XR of the R Ankle in 1-2 weeks.
- OK to discharge to [facility] facility for continuing PT/OT
#Acute on chronic HFpEF
-daily weight checks
-fluid restriction 1200mls
-ECHO LVEF 60-65%. Mild-mod regurgitation, trace aortic regurg, mild tricuspid regurg
-On 06/20 BNP 9120 & CXR showed mild-mod CHF.
- Transition to Lasix PO 40mg QD in the AM with repeat BMP x1 week
#Essential hypertension with hypertensive urgency
- BP in 24hr 100-140s/50-70s.
- Patient taking Norvasc
- Added hydralizine 10 mg PRN despite allergy. Nurse advised to watch pt closely and to keep pt in bed upon first dosing.
- Continue Carvedilol 12.5mg BID
#Reflux Symptoms
- Ordered Tums PRN
#COVID (+)
- Day 11 since symptom onset.
- Off precautions, lungs sound clear. No new fevers or hypoxia.
#Chronic ITP
-gets N plate shot as outpatient
-Platelets 144, 105, 89, 87, 76.
-no active bleeding
-Platelets stable. Follow up OP with Hemeatology
#Anemia of Chronic Disease
-hgb stable at 9.7, down from 10.7 yesterday
-no active bleeding
-Will continue to monitor
#Permanent Atrial Fibrillation
-Stable/rate controlled on Carvedilol 12.5mg
-atenolol discontinued as above
-Not on OAC given underlying ITP / bleeding risks.
-Cardiology following
#CAD
- Stable.
#Chronic Lymphedema
-Continue compression.
#Hypomagnesemia
- Magnesium 1.4, given 2 gram Magnesium sulfate. Increase to 1.8
- Resolved
#Dispo:
Discharge today
Anticipated Discharge: Today
Subjective/Interval History
-
Seen in the AM. Still having nonproductive cough. No over night events.
Objective Data
-
Labs:
Laboratory Results
06/25/24
06:11
WBC 4.7 L
Hgb 9.8 L
Hct 30.2 L
Plt Count 76 L
Sodium 136
Potassium 4.2
Chloride 100
Carbon Dioxide 26
BUN 36 H
Creatinine 1.3 H
Glucose 112 H
Calcium 8.0 L
Vital Signs:
Vital Signs
Temp Pulse Resp BP Pulse Ox
97.8 F 65 17 118/48 96
06/24/24 23:00 06/24/24 23:00 06/24/24 23:00 06/24/24 23:00 06/25/24 04:00
I&O
06/24/24 06/25/24 06/26/24
06:59 06:59 06:59
Intake Total 1190 / 1190 420 / 420
Output Total 400 / 400
Balance 790 / 790 420 / 420
Review of Systems
-
Unable to obtain full review of systems at this time due to: Acuity (Hearing Aid)
History Source: Patient
All other systems: Reviewed and negative
Constitutional: Reports No Symptoms
EENT: Reports Hearing Loss
Respiratory: Reports Cough
Cardiac: Reports No Symptoms
Abdomen/GI: Reports No Symptoms
Genitourinary: Reports No Symptoms
Musculoskeletal: Reports Other (R foot pain)
Skin: Reports Other
Neuro: Reports Other (Post herpetic neuralgia, R back)
Physical Exam
-
General: Well Developed, Well Nourished and No Apparent Distress
HEENT: Normocephalic, Atraumatic, Moist Mucous Membranes, Anicteric and PERRLA
Respiratory: Clear to Auscultation
Cardiac: Regular Rhythm and S1/S2
GI: Soft, Nontender and Nondistended
Musculoskeletal: Other (R foot Boot. Stable LLE lymphedema)
Skin: Warm and Dry
Neuro: Awake, Alert and Oriented
[2024-06-25 07:49] VITALS: BP 138/63
[2024-06-25] MEDS: NORVASC 10 MG PO (08:11)
[2024-06-25] MEDS: COLACE PO ×2 (08:11→08:12)
[2024-06-25] MEDS: DIOVAN 160 MG PO (08:12)
[2024-06-25] MEDS: FLOMAX 0.4 MG PO (08:12)
[2024-06-25] MEDS: TYLENOL 1000 MG PO ×2 (08:12→16:07)
[2024-06-25] MEDS: COREG 12.5 MG PO (08:12)
[2024-06-25] MEDS: SENOKOT PO ×2 (08:12)
[2024-06-25] MEDS: LASIX 40 MG PO (08:12)
--- NOTE | 2024-06-25 08:51 | PTCARENOTE ---
Patient extremely [employer] and SHEA batteries are . Daughter to bring in batteries.
--- NOTE | 2024-06-25 09:08 | PN.CDI ---
CDI
- -
CDI:
Physician Documentation Request
Admit Date: 06/20/24 23:30
Dear Doctor Cayla,
Please review the following and provide your response in the progress notes.
Clinical Indicators:
- 06/21 2 gram Magnesium sulfate given
Laboratory Tests
06/21/24 06/21/24 06/22/24
06:43 06:44 07:16
Magnesium 1.4 L 1.4 L 1.8
Please provide a diagnosis for the above lab values that were monitored and treatment rendered:
Hypomagnesemia
Clinically insignificant abnormal lab value
Other
Use of terms such as suspected, likely, concern for, or probable (associated with a specific diagnosis that is being evaluated, monitored, or treated as if it exists) are acceptable and can be coded in the inpatient setting, when documented at the
time of discharge.
Thank you,
Mala Riddle RN
CDI Specialist
Please use your independent medical judgment in providing your response.
--- NOTE | 2024-06-25 09:21 | PN.CDI ---
CDI
- -
CDI:
Physician Documentation Request
Admit Date: 06/20/24 23:30
Dear Doctor Cayla,
Please review the following and provide your response in the progress notes.
Clinical Indicators:
- 06/20 ER Physician indicates 88 year old patient fell with right ankle fracture
- 06/24 PN 'R Ankle Fracture...Mechanical Fall'
- 2013 Bone Densitometry indicates osteoporosis
Please provide further specificity regarding the diagnosis of right ankle fracture:
Due to a combination of trauma and a pathological process but the trauma alone would not likely have been sufficient to cause the fracture
Traumatic
Pathologic due osteoporosis
Other
Use of terms such as suspected, likely, concern for, or probable (associated with a specific diagnosis that is being evaluated, monitored, or treated as if it exists) are acceptable and can be coded in the inpatient setting, when documented at the
time of discharge.
Thank you,
Mala Riddle RN
CDI Specialist
Please use your independent medical judgment in providing your response.
--- NOTE | 2024-06-25 10:52 | PTCARENOTE ---
Patient turned in bed with mod assistance. Patient with right cam boot on and elevated on pillow. Right heel red and blanchable-patient refused pillow. RN placed a rolled blanket under left heel. Patient incontinent of two large bowel movements,
colace and senekot were held this am. Patient with puss filled red lump on labia (?in grown hair). Patient states, 'I know I have 2 bumps there, but there are some things you don't want to tell the doctor.'
[2024-06-25] MEDS: LIDOCAINE 4% PATCH 1 PATCH TOPICAL (12:28)
[2024-06-25] MEDS: KCL 10 MEQ PO (12:29)
--- NOTE | 2024-06-25 12:55 | CM ---
Addendum entered by Bebe Fountain 06/25/24 13:17:
Patient will require ambulance transport.
transport forms on chart.
Original Note:
[facility] can offer a bed today.
TT to .
[facility]
Report# [phone]
--- NOTE | 2024-06-25 14:38 | PTCARENOTE ---
Patient was angry, uncooperative and c/o how bad the food was, c/o doctors not at bedside by 8am. Patient refused to get OOB to use [facility] and had BM in her attends multiple times. Patient extremely OMAHA and difficult to communicate with. RN wrote all
medications down for patient. Patient was angry that RN wore mask in her room and demanded RN take it off. RN did not take mask off as patient had a harsh moist cough and would not cover her mouth when coughing.
[2024-06-25 15:11] VITALS: BP 112/51
--- NOTE | 2024-06-25 19:07 | W.DCSUMMARY ---
Addendum entered and electronically signed by Tyrel Grissom MD 06/25/24 22:32:
Read, reviewed, and agree. See same day progress note for additional details.
Petar Grissom MD
Original Note:
Documented by User: Adiel Kulkarni MD, Resident 06/25/24 19:11
Discharge Summary
Discharge Data
Date of Admission: 06/20/24
Date of Discharge: 06/25/24
-
Pending Results: No
Hospital Course
Discharging Physician :� Dr Adiel Kulkarni, Dr Tyrel Grissom�
Disposition :� [facility]
Primary care physician :� � Unknown� �
Principal Discharge diagnosis :��
Right ankle fracture due to a combination of trauma and osteoporosis
Acute on chronic HFpEF
Hypertensive urgency
COVID-positive
Chronic Discharge diagnosis :��
Chronic ITP
Essential hypertension
Anemia of chronic disease
Permanent atrial fibrillation
Hospital Course :��
88-year-old female presented to the ED after a fall.� Patient hit the back of her head and stated that she had some chest discomfort.� She was also diagnosed with COVID on 06/12.� CT head was negative, however chest x-ray showed CHF and patient also
had a right ankle fracture.� Patient was started on IV Lasix in the ED.�Elevated BP to around 150s were noted in the ED, hydralazine IV prn was initiated.�For right ankle fracture splint was placed and patient was given 5 mg oxycodone�for pain.�
Patient was then admitted to the floor for further evaluation. Cardiology was soon consulted and patient was managed with IV furosemide� over the next few days. On echocardiogram patient's pulmonary artery pressure increased from 45 to 61 mmHg.
Amlodipine 10 mg was added for better BP control.� We consulted orthopedics for right ankle fracture and the decision of cam boot for 4 weeks was made, weightbearing as tolerated.� She was continued on IV Lasix twice daily and I/O, daily weights
were monitored.� Orthopedic was consulted for right ankle fracture and they advised� cam boot for 4 weeks, weightbearing as tolerated.� On day 3 of hospitalization patient had improved on IV furosemide and was transitioned to oral 40
furosemide.�Anticoagulation was held during the hospital course due to history of ITP.� �
For chronic conditions,�home medication were continued.�
On the day of discharge, vitals remain stable. Plan was made to discharge the patient�to [facility]. Discharging on furosemide 40mg,� amlodipine 5 mg,� carvedilol 12.5, oxycodone as needed for pain.�
Imaging :
Head CT and cervical CT�- No acute intracranial abnormality noted. No acute fracture or subluxation of the cervical spine. Multilevel degenerative changes of the cervical spine.
Thoracic spine x-ray - S-shaped curvature of the thoracolumbar spine. Moderate multilevel degenerative changes of the thoracic spine without convincing evidence for acute fracture or subluxation. Chronic L1 height loss. Soft tissues grossly
unremarkable.
Chest x-ray - Mild to moderate CHF.
Ankle x-ray - Suspect nondisplaced fracture of the distal fibula.
Discharge Plan
-
Patient Disposition: Penitentiary[facility]SNF
Discharge Diagnosis/Procedures: Acute on chronic HFpEF
Right ankle fracture
Essential hypertension with hypertensive urgency
Permanent atrial fibrillation
Chronic ITP
Anemia of chronic disease
Condition: Good
Diet: 2 Gram Sodium
Activity: No restrictions
Driving Restrictions: As prior to admission
Blood Work: BMP in 1 week
Instructions: *CBC Heart Failure Instructions
Referrals:
Bobby Dempsey MD [Family Provider] -
Jhonny Victor MD [Active] - (Please call to schedule 1 to 2 weeks from your date of injury for repeat clinical examination and x-rays)
Additional Discharge Medication Instructions: Amlodipine 5 mg 1 tablet to be taken once a day
Carvedilol 12.5 mg 1 tablet to be taken twice a day
Furosemide 40 mg 1 tablet to be taken once a day
Oxycodone 5 mg 1 tablet to be taken every 4 hours as needed
Prescriptions:
New
carvedilol 12.5 mg Tablet
12.5 mg PO BID 30 Days Qty: 60 0RF
furosemide 40 mg Tablet
40 mg PO DAILY 30 Days Qty: 30 0RF
amlodipine 5 mg tablet
5 mg PO DAILY 30 Days Qty: 30 0RF
oxycodone 5 mg Tablet
5 mg PO Q4HPRN PRN (Reason: mild pain) 3 Days Qty: 12 0RF
Continued
acetaminophen [Tylenol Extra Strength] 500 MG tablet
1,000 mg PO TID
cyanocobalamin (vitamin B-12) 1,000 mcg Tablet
1,000 mcg PO HS
valsartan 160 mg tablet
160 mg PO DAILY
potassium chloride 10 MEQ capsule, extended release
10 meq PO NOON
Discontinued
furosemide 20 MG tablet
20 mg PO DAILY
Patient Comments:
pt has not been taking the Lasix, last time taken May 30
atenolol 50 mg tablet
50 mg PO HS
Discharge Orders:
Discharge Patient (As Directed); Ordered 06/25/24
Ordered By: Abida Aguirre
Discharge Date and Time
Discharge Date/Time: 06/25/24 17:02
Print Language: LITHUANIAN

Documented by User: Tyrel Grissom MD 06/25/24 22:27
Discharge Summary
Discharge Data
Date of Admission: 06/20/24
Date of Discharge: 06/25/24
Discharge Plan
-
Patient Disposition: Penitentiary/SNF
Discharge Diagnosis/Procedures: Acute on chronic HFpEF
Right ankle fracture
Essential hypertension with hypertensive urgency
Permanent atrial fibrillation
Chronic ITP
Anemia of chronic disease
Condition: Good
Diet: 2 Gram Sodium
Activity: No restrictions
Driving Restrictions: As prior to admission
Blood Work: BMP in 1 week
Instructions: *CBC Heart Failure Instructions
Referrals:
Bobby Dempsey MD [Family Provider] -
Jhonny Victor MD [Active] - (Please call to schedule 1 to 2 weeks from your date of injury for repeat clinical examination and x-rays)
Additional Discharge Medication Instructions: Amlodipine 5 mg 1 tablet to be taken once a day
Carvedilol 12.5 mg 1 tablet to be taken twice a day
Furosemide 40 mg 1 tablet to be taken once a day
Oxycodone 5 mg 1 tablet to be taken every 4 hours as needed
Prescriptions:
New
carvedilol 12.5 mg Tablet
12.5 mg PO BID 30 Days Qty: 60 0RF
furosemide 40 mg Tablet
40 mg PO DAILY 30 Days Qty: 30 0RF
amlodipine 5 mg tablet
5 mg PO DAILY 30 Days Qty: 30 0RF
oxycodone 5 mg Tablet
5 mg PO Q4HPRN PRN (Reason: mild pain) 3 Days Qty: 12 0RF
Continued
acetaminophen [Tylenol Extra Strength] 500 MG tablet
1,000 mg PO TID
cyanocobalamin (vitamin B-12) 1,000 mcg Tablet
1,000 mcg PO HS
valsartan 160 mg tablet
160 mg PO DAILY
potassium chloride 10 MEQ capsule, extended release
10 meq PO NOON
Discontinued
furosemide 20 MG tablet
20 mg PO DAILY
Patient Comments:
pt has not been taking the Lasix, last time taken May 30
atenolol 50 mg tablet
50 mg PO HS
Discharge Orders:
Discharge Patient (As Directed); Ordered 06/25/24
Ordered By: Abida Aguirre
Discharge Date and Time
Discharge Date/Time: 06/25/24 17:02
Print Language: LITHUANIAN
--- NOTE | 2024-06-26 13:01 | W.HF.CON ---
Heart Failure
- LV Function
Left ventricular function study result: LV Ejection fraction >40%
Ejection Fraction Percentage: 60
- ARNI
Patient already on ARNI: No
Heart Failure ARNI Not Indicated: LV Ejection Fraction >/= 40%
- ACEI/ARB
Patient already on ACEI/ARB: Yes
- Beta Cheryl
Patient already on Evidence Based Beta Cheryl: Yes
- Mineralocorticord Receptor Antagonist
Patient already on MRA: No
Heart Failure MRA Not Indicated: LV Ejection Fraction > 40%
- SGLT-2 Inhibitor
Patient already on SGLT-2 Inhibitor: No
Heart Failure SGLT-2 Inhibitor Not Indicated: LV Ejection Fraction >40%
- Afib Anticoagulation
Patient already on Anticoagulation for Afib: No
Heart Failure Afib Anticoagulation Contraindication: Patient Refusal
- NYHA CHF Classification
NYHA CHF Classification Level: Class III - Symptoms w/ min exertion, interferes w/ nml daily activity
- ACC/AHA Stage
ACC/AHA Stage: Stage C: Symptomatic Heart Failure
== END 2024-06-25 17:02 | DRG 542 ==
LOC: 3 WEST ACU 23:30
PROVIDERS: Clinical Nurse Specialist Family Health; Nurse Practitioner Gerontology; Registered Nurse; ADMITTING PHYSICIAN Hospitalist; ATTENDING PHYSICIAN Family Medicine; CONSULT PHYSICIAN Internal Medicine; EMERGENCY PHYSICIAN Student in an Organized Health Care Education/Training Program; FAMILY PHYSICIAN Internal Medicine
DX: M80.061A Age-related osteoporosis with current pathological fracture, right lower leg, initial encounter for fracture (principal); I50.33 Acute on chronic diastolic (congestive) heart failure; U07.1 COVID-19; I48.21 Permanent atrial fibrillation; D69.3 Immune thrombocytopenic purpura; I11.0 Hypertensive heart disease with heart failure; I25.10 Atherosclerotic heart disease of native coronary artery without angina pectoris; I16.0 Hypertensive urgency; I89.0 Lymphedema, not elsewhere classified; R00.1 Bradycardia, unspecified; D63.8 Anemia in other chronic diseases classified elsewhere; I34.0 Nonrheumatic mitral (valve) insufficiency; W18.30XA Fall on same level, unspecified, initial encounter; I25.2 Old myocardial infarction; Z88.8 Allergy status to other drugs, medicaments and biological substances; Z88.6 Allergy status to analgesic agent; Z85.3 Personal history of malignant neoplasm of breast; Z79.899 Other long term (current) drug therapy; Z86.718 Personal history of other venous thrombosis and embolism
CPT/HCPCS: 29515; 36415; 70450; 71046; 72072; 72125; 73610; 80048; 80053; 82248; 83735; 83880; 84443; 84484; 85025; 87536; 87811; 93005; 93306; 96374; 97163; 97167; 97530; 97535; 99285

== ENCOUNTER → 2024-06-28 17:06 | Outpatient (REF) | payer OTHER, MEDICARE, BC, SELFPAY ==
[2024-06-28 18:49] LABS: Blood Urea Nitrogen 39 mg/dl (7-17); Calcium 8.9 mg/dl (8.4-10.2); Carbon Dioxide 28 mmol/L (22-30); Chloride 100 mmol/L (98-107); Glucose 112 mg/dl (70-99); Potassium 4.9 mmol/L (3.5-5.1); Sodium 138 mmol/L (135-145); eGFR 43.81
[2024-06-28 18:54] LABS: % Basophils 1.3 % (0-2); % Immature Granulocytes 0.7 % (0-0.5); % Lymphocytes 18.3 % (20.5-51.1); % Monocytes 10.6 % (1.7-9.3); % Neutrophils 66.1 % (42.2-75.2); Absolute Basophils 0.1 10^3/uL (0-0.2); Absolute Eosinophils 0.2 10^3/uL (0-0.7); Absolute Lymphocytes 1.1 10^3/uL (1.2-3.4); Absolute Monocytes 0.6 10^3/uL (0.1-0.6); Hematocrit 32.7 % (37.0-47.0); Hemoglobin 10.2 g/dL (12.0-16.0); Mean Corp Hgb Conc. 31.2 g/dL (33.0-37.0); Mean Corpuscular Hgb 25.9 pg (27.0-31.0); Nucleated Red Blood Cells % 0 %; Platelet Count 96 10^3/uL (130-400); Red Blood Cell Count 3.94 10^6/uL (4.20-5.40); Red Cell Dist. Width 14.9 % (11.5-14.5)
== END ==
LOC: OLABP 17:06
PROVIDERS: ATTENDING PHYSICIAN Family Medicine
DX: I48.21 Permanent atrial fibrillation (principal); H91.90 Unspecified hearing loss, unspecified ear; M25.571 Pain in right ankle and joints of right foot; S82.891D Other fracture of right lower leg, subsequent encounter for closed fracture with routine healing; R26.2 Difficulty in walking, not elsewhere classified; I50.33 Acute on chronic diastolic (congestive) heart failure; M62.81 Muscle weakness (generalized); I11.0 Hypertensive heart disease with heart failure; I25.10 Atherosclerotic heart disease of native coronary artery without angina pectoris
CPT/HCPCS: 80048; 85025

== ENCOUNTER → 2024-07-02 12:34 | Outpatient (REF) | payer OTHER, MEDICARE, BC, SELFPAY ==
[2024-07-02 13:33] LABS: % Eosinophils 4.1 % (0-6); % Immature Granulocytes 0.5 % (0-0.5); % Lymphocytes 20.2 % (20.5-51.1); % Monocytes 11.4 % (1.7-9.3); % Neutrophils 61.8 % (42.2-75.2); Absolute Basophils 0.1 10^3/uL (0-0.2); Absolute Eosinophils 0.2 10^3/uL (0-0.7); Absolute Lymphocytes 0.9 10^3/uL (1.2-3.4); Absolute Monocytes 0.5 10^3/uL (0.1-0.6); Absolute Neutrophils 2.7 10^3/uL (1.4-6.5); Hematocrit 28.3 % (37.0-47.0); Hemoglobin 9.1 g/dL (12.0-16.0); Mean Corp Hgb Conc. 32.2 g/dL (33.0-37.0); Mean Corpuscular Hgb 26.5 pg (27.0-31.0); Mean Corpuscular Volume 82.3 fL (81.0-99.0); Nucleated Red Blood Cells % 0 %; Platelet Count 64 10^3/uL (130-400); Red Blood Cell Count 3.44 10^6/uL (4.20-5.40); White Blood Cell Count 4.4 10^3/uL (4.8-10.8)
[2024-07-02 14:10] LABS: Blood Urea Nitrogen 37 mg/dl (7-17); Calcium 8.8 mg/dl (8.4-10.2); Carbon Dioxide 22 mmol/L (22-30); Chloride 106 mmol/L (98-107); Glucose 86 mg/dl (70-99); Potassium 4.5 mmol/L (3.5-5.1); Sodium 138 mmol/L (135-145); eGFR 48.63
== END ==
LOC: OLABP 12:34
PROVIDERS: ATTENDING PHYSICIAN Family Medicine
DX: S82.891D Other fracture of right lower leg, subsequent encounter for closed fracture with routine healing (principal); I50.33 Acute on chronic diastolic (congestive) heart failure
CPT/HCPCS: 36415; 80048; 85025

== ENCOUNTER → 2024-07-04 14:17 | Outpatient (REF) | payer MEDICARE, BC, SELFPAY ==
[2024-07-04 14:39] LABS: % Eosinophils 2.5 % (0-6); % Immature Granulocytes 0.3 % (0-0.5); % Lymphocytes 12.5 % (20.5-51.1); % Monocytes 8.9 % (1.7-9.3); % Neutrophils 74.8 % (42.2-75.2); Absolute Basophils 0.1 10^3/uL (0-0.2); Absolute Eosinophils 0.2 10^3/uL (0-0.7); Absolute Lymphocytes 0.8 10^3/uL (1.2-3.4); Absolute Monocytes 0.5 10^3/uL (0.1-0.6); Absolute Neutrophils 4.6 10^3/uL (1.4-6.5); Hematocrit 32.6 % (37.0-47.0); Hemoglobin 10.3 g/dL (12.0-16.0); Mean Corp Hgb Conc. 31.6 g/dL (33.0-37.0); Mean Corpuscular Hgb 26.8 pg (27.0-31.0); Mean Corpuscular Volume 84.7 fL (81.0-99.0); Red Blood Cell Count 3.85 10^6/uL (4.20-5.40); Red Cell Dist. Width 15.1 % (11.5-14.5); White Blood Cell Count 6.1 10^3/uL (4.8-10.8)
[2024-07-04 14:42] LABS: Platelet Count 60 10^3/uL (130-400)
== END ==
LOC: OIDL 14:17
PROVIDERS: ATTENDING PHYSICIAN Internal Medicine Hematology & Oncology; FAMILY PHYSICIAN Internal Medicine
DX: D69.3 Immune thrombocytopenic purpura (principal); D51.8 Other vitamin B12 deficiency anemias; L03.116 Cellulitis of left lower limb; C50.411 Malignant neoplasm of upper-outer quadrant of right female breast; D50.8 Other iron deficiency anemias
CPT/HCPCS: 36415; 85025

== ENCOUNTER → 2024-07-08 10:33 | Outpatient (REF) | payer OTHER, MEDICARE, BC, SELFPAY ==
[2024-07-08 14:18] LABS: % Basophils 1.2 % (0-2); % Eosinophils 3.9 % (0-6); % Immature Granulocytes 0.5 % (0-0.5); % Lymphocytes 16.8 % (20.5-51.1); % Monocytes 12.4 % (1.7-9.3); % Neutrophils 65.2 % (42.2-75.2); Absolute Basophils 0.1 10^3/uL (0-0.2); Absolute Eosinophils 0.2 10^3/uL (0-0.7); Absolute Lymphocytes 0.7 10^3/uL (1.2-3.4); Absolute Monocytes 0.5 10^3/uL (0.1-0.6); Absolute Neutrophils 2.8 10^3/uL (1.4-6.5); Hematocrit 27.2 % (37.0-47.0); Hemoglobin 8.7 g/dL (12.0-16.0); Mean Corpuscular Hgb 26.2 pg (27.0-31.0); Mean Corpuscular Volume 81.9 fL (81.0-99.0); Nucleated Red Blood Cells % 0 %; Red Blood Cell Count 3.32 10^6/uL (4.20-5.40); Red Cell Dist. Width 15.7 % (11.5-14.5); White Blood Cell Count 4.3 10^3/uL (4.8-10.8)
[2024-07-08 14:50] LABS: Platelet Count 35 10^3/uL (130-400)
== END ==
LOC: OLABP 10:33
PROVIDERS: ATTENDING PHYSICIAN Family Medicine
DX: I50.30 Unspecified diastolic (congestive) heart failure (principal); M25.571 Pain in right ankle and joints of right foot; U07.1 COVID-19; R26.2 Difficulty in walking, not elsewhere classified; M62.81 Muscle weakness (generalized); I11.0 Hypertensive heart disease with heart failure; H91.90 Unspecified hearing loss, unspecified ear; I48.21 Permanent atrial fibrillation; I25.10 Atherosclerotic heart disease of native coronary artery without angina pectoris
CPT/HCPCS: 36415; 85025

== ENCOUNTER → 2024-07-09 11:22 | Outpatient (REF) | payer OTHER, MEDICARE, BC, SELFPAY ==
[2024-07-09 12:23] LABS: % Basophils 1.1 % (0-2); % Eosinophils 4.5 % (0-6); % Immature Granulocytes 0.4 % (0-0.5); % Lymphocytes 16.3 % (20.5-51.1); % Monocytes 12.7 % (1.7-9.3); Absolute Basophils 0.1 10^3/uL (0-0.2); Absolute Eosinophils 0.2 10^3/uL (0-0.7); Absolute Lymphocytes 0.8 10^3/uL (1.2-3.4); Absolute Monocytes 0.6 10^3/uL (0.1-0.6); Hematocrit 27.3 % (37.0-47.0); Hemoglobin 8.7 g/dL (12.0-16.0); Mean Corp Hgb Conc. 31.9 g/dL (33.0-37.0); Mean Corpuscular Hgb 26.2 pg (27.0-31.0); Mean Corpuscular Volume 82.2 fL (81.0-99.0); Nucleated Red Blood Cells % 0 %; Platelet Count 46 10^3/uL (130-400); Red Blood Cell Count 3.32 10^6/uL (4.20-5.40); Red Cell Dist. Width 15.8 % (11.5-14.5); White Blood Cell Count 4.7 10^3/uL (4.8-10.8)
== END ==
LOC: OLABP 11:22
PROVIDERS: ATTENDING PHYSICIAN Family Medicine
DX: S82.891A Other fracture of right lower leg, initial encounter for closed fracture (principal); I50.30 Unspecified diastolic (congestive) heart failure; M25.571 Pain in right ankle and joints of right foot; R26.2 Difficulty in walking, not elsewhere classified; M62.81 Muscle weakness (generalized); I10 Essential (primary) hypertension; H91.90 Unspecified hearing loss, unspecified ear; I48.21 Permanent atrial fibrillation; U07.1 COVID-19
CPT/HCPCS: 36415; 85025

== ENCOUNTER → 2024-07-10 11:59 | Outpatient (REF) | payer OTHER, MEDICARE, BC, SELFPAY ==
[2024-07-10 12:35] LABS: % Basophils 1.2 % (0-2); % Eosinophils 3.7 % (0-6); % Immature Granulocytes 0.2 % (0-0.5); % Lymphocytes 15.4 % (20.5-51.1); % Monocytes 10.8 % (1.7-9.3); % Neutrophils 68.7 % (42.2-75.2); Absolute Basophils 0.1 10^3/uL (0-0.2); Absolute Eosinophils 0.2 10^3/uL (0-0.7); Absolute Lymphocytes 0.8 10^3/uL (1.2-3.4); Absolute Monocytes 0.5 10^3/uL (0.1-0.6); Absolute Neutrophils 3.4 10^3/uL (1.4-6.5); Hematocrit 28.1 % (37.0-47.0); Hemoglobin 8.9 g/dL (12.0-16.0); Mean Corp Hgb Conc. 31.7 g/dL (33.0-37.0); Mean Corpuscular Hgb 25.9 pg (27.0-31.0); Mean Corpuscular Volume 81.9 fL (81.0-99.0); Nucleated Red Blood Cells % 0 %; Platelet Count 65 10^3/uL (130-400); Red Blood Cell Count 3.43 10^6/uL (4.20-5.40); Red Cell Dist. Width 15.9 % (11.5-14.5); White Blood Cell Count 4.9 10^3/uL (4.8-10.8)
== END ==
LOC: OLABP 11:59
PROVIDERS: ATTENDING PHYSICIAN Family Medicine
DX: M25.571 Pain in right ankle and joints of right foot (principal); R26.2 Difficulty in walking, not elsewhere classified; M62.81 Muscle weakness (generalized); I48.21 Permanent atrial fibrillation
CPT/HCPCS: 36415; 85025

== ENCOUNTER → 2024-07-18 14:19 | Outpatient (REF) | payer MEDICARE, BC, SELFPAY ==
[2024-07-18 14:36] LABS: % Basophils 0.8 % (0-2); % Eosinophils 3.4 % (0-6); % Immature Granulocytes 0.2 % (0-0.5); % Lymphocytes 12.5 % (20.5-51.1); % Monocytes 6.5 % (1.7-9.3); % Neutrophils 76.6 % (42.2-75.2); Absolute Eosinophils 0.2 10^3/uL (0-0.7); Absolute Lymphocytes 0.6 10^3/uL (1.2-3.4); Absolute Monocytes 0.3 10^3/uL (0.1-0.6); Absolute Neutrophils 3.9 10^3/uL (1.4-6.5); Hematocrit 30.3 % (37.0-47.0); Hemoglobin 9.5 g/dL (12.0-16.0); Mean Corp Hgb Conc. 31.4 g/dL (33.0-37.0); Mean Corpuscular Volume 86.1 fL (81.0-99.0); Platelet Count 48 10^3/uL (130-400); Red Blood Cell Count 3.52 10^6/uL (4.20-5.40); Red Cell Dist. Width 16.7 % (11.5-14.5); White Blood Cell Count 5.1 10^3/uL (4.8-10.8)
== END ==
LOC: OIDL 14:19
PROVIDERS: ATTENDING PHYSICIAN Internal Medicine Hematology & Oncology
DX: D69.3 Immune thrombocytopenic purpura (principal)
CPT/HCPCS: 36415; 85025

== ENCOUNTER → 2024-07-29 01:30 | Outpatient (REF) | payer MEDICARE, BC, SELFPAY ==
[2024-07-29 19:16] LABS: % Basophils 1.4 % (0-2); % Eosinophils 2.9 % (0-6); % Immature Granulocytes 0.4 % (0-0.5); % Lymphocytes 13.3 % (20.5-51.1); % Monocytes 7.5 % (1.7-9.3); % Neutrophils 74.5 % (42.2-75.2); Absolute Basophils 0.1 10^3/uL (0-0.2); Absolute Eosinophils 0.2 10^3/uL (0-0.7); Absolute Lymphocytes 0.7 10^3/uL (1.2-3.4); Absolute Monocytes 0.4 10^3/uL (0.1-0.6); Absolute Neutrophils 3.8 10^3/uL (1.4-6.5); Hematocrit 29.5 % (37.0-47.0); Hemoglobin 9.2 g/dL (12.0-16.0); Mean Corp Hgb Conc. 31.2 g/dL (33.0-37.0); Mean Corpuscular Hgb 26.8 pg (27.0-31.0); Nucleated Red Blood Cells % 0 %; Platelet Count 124 10^3/uL (130-400); Red Blood Cell Count 3.43 10^6/uL (4.20-5.40); Red Cell Dist. Width 18.2 % (11.5-14.5); White Blood Cell Count 5.1 10^3/uL (4.8-10.8)
[2024-07-29 19:23] LABS: ALT (SGPT) 11 U/L (0-35); AST (SGOT) 15 U/L (14-36); Albumin 3.6 g/dl (3.5-5.0); Alkaline Phosphatase 72 U/L (38-126); Blood Urea Nitrogen 32 mg/dl (7-17); Calcium 8.9 mg/dl (8.4-10.2); Carbon Dioxide 19 mmol/L (22-30); Chloride 109 mmol/L (98-107); Glucose 157 mg/dl (70-99); Potassium 4.7 mmol/L (3.5-5.1); Sodium 141 mmol/L (135-145); Total Bilirubin 0.9 mg/dl (0.2-1.3); Total Protein 6.3 g/dl (6.3-8.2); eGFR 54.53
== END ==
LOC: CLAB 01:30
PROVIDERS: ATTENDING PHYSICIAN Internal Medicine Hematology & Oncology; FAMILY PHYSICIAN Internal Medicine
DX: C50.411 Malignant neoplasm of upper-outer quadrant of right female breast (principal); D69.3 Immune thrombocytopenic purpura; D50.8 Other iron deficiency anemias
CPT/HCPCS: 36415; 80053; 85025

== ENCOUNTER → 2024-10-09 13:49 | Outpatient (REF) | payer MEDICARE, BC, SELFPAY ==
[2024-10-09 14:43] LABS: % Basophils 0.3 % (0-2); % Immature Granulocytes 0.3 % (0-0.5); % Lymphocytes 5.1 % (20.5-51.1); % Monocytes 7.1 % (1.7-9.3); % Neutrophils 87.2 % (42.2-75.2); Absolute Lymphocytes 0.5 10^3/uL (1.2-3.4); Absolute Monocytes 0.7 10^3/uL (0.1-0.6); Absolute Neutrophils 8.5 10^3/uL (1.4-6.5); Hematocrit 33.4 % (37.0-47.0); Hemoglobin 10.8 g/dL (12.0-16.0); Mean Corp Hgb Conc. 32.3 g/dL (33.0-37.0); Mean Corpuscular Hgb 29.2 pg (27.0-31.0); Mean Corpuscular Volume 90.3 fL (81.0-99.0); Mean Platelet Volume 11.6 fL (7.4-10.4); Platelet Count 241 10^3/uL (130-400); Red Cell Dist. Width 16.8 % (11.5-14.5); White Blood Cell Count 9.8 10^3/uL (4.8-10.8)
[2024-10-09 15:49] LABS: AST (SGOT) 24 U/L (14-36); Albumin 4.1 g/dl (3.5-5.0); Alkaline Phosphatase 46 U/L (38-126); Direct Bilirubin 0.4 mg/dl (0.0-0.4); Total Bilirubin 0.9 mg/dl (0.2-1.3); Total Protein 6.8 g/dl (6.3-8.2)
[2024-10-09 16:00] LABS: ALT (SGPT) 15 U/L (0-35)
== END ==
LOC: OIDL 13:49
PROVIDERS: ATTENDING PHYSICIAN Nurse Practitioner Acute Care
DX: D69.3 Immune thrombocytopenic purpura (principal)
CPT/HCPCS: 36415; 80076; 85025

== ENCOUNTER 2024-10-15 07:37 | Outpatient (RCR) | payer MEDICARE, BC, SELFPAY | END 2024-10-15 23:59 | disposition home or self-care (01) | LOC: RPT 07:37 | PROVIDERS: ATTENDING PHYSICIAN Internal Medicine | DX: I89.0 Lymphedema, not elsewhere classified (principal); Z73.6 Limitation of activities due to disability | CPT/HCPCS: 97163; 97535 ==

== ENCOUNTER 2024-11-25 19:53 | Emergency (ER) | payer MEDICARE, BC, SELFPAY ==
[2024-11-25 19:59] VITALS: BP 184/85; BMI 26.8
[2024-11-25 20:00] VITALS: BP 184/85
--- NOTE | 2024-11-25 20:58 | ED.GENMED ---
History of Present Illness
<Cruz George DO - Last Filed: 11/27/24 13:38>
General
Chief Complaint: Abdominal Pain
Source: patient and family
Time Seen by Provider: 11/25/24 20:05
History of Present Illness
History of Present Illness:
89-year-old female brought to the emergency room for evaluation of nausea vomiting. Patient also complaining of abdominal pain and abdominal distention. She did have a bowel movement today. Patient does have a history of abdominal surgery
including a open cholecystectomy. Symptoms began this afternoon. No fever. No known sick contacts.
Past History
<Cruz George DO - Last Filed: 11/27/24 13:38>
Past History
ED Past Medical History: Arrthythmia (Atrial fibrillation), CAD, CHF, HTN, NH and Other (hearing impaired, ITP, chronic lymphedema bilateral legs, Endocarditis, PVD, Glaucoma, Macular Degeneration, Vitiligo)
ED Past Surgical History: Cardiac (cardiac cath with PTCA), Cholecystectomy, Gynecological (Tubal ligation, D&C, Lumpectomy), Orthopedic (Arthroscopic surgery on the knee) and Other
Social History
Tobacco: Non-smoker
Alcohol: Occasional
Personal:
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
Family History
Family History: Other (Noncontributory)
Phy Exam
<Cruz George DO - Last Filed: 11/27/24 13:38>
Physical Exam
Physical Exam:
General: Awake, Alert, Oriented X3. Appears stated age, chronically ill
Vitals: unremarkable
Head: Atraumatic
Eyes: Pupils equal, EOMI
Throat: Airway intact, no exudates, mildly dry mucosa
Neck: Trachea midline
Lungs: Clear and equal b/l
Heart: Regular rate, no murmurs
Abd: Soft, abdomen distended, moderately tender with perhaps some rebound, No pulsatile mass
Rectal:
Neuro: Nonfocal
Skin: Warm, dry, no rash
Extremities: pulses equal b/l, no edema
Course
Alfredlt;Crzu George, - Last Filed: 11/27/24 13:38>
Orders/Labs/Results
Orders:
Orders
11/25/24 20:48
Complete Blood Count/With Diff Urgent
Comprehensive Metabolic Panel Urgent
Lipase Urgent
11/25/24 20:56
Cardiac Monitoring- Treatment ONCE
Iohexol [Omnipaque] See Protocol PO NOW STA
Ondansetron Injectable [Zofran] 4 mg IV NOW STA
11/25/24 20:57
Lactated Ringers [Lr] 500 ml IV BOLUS
11/25/24 22:40
Lactated Ringers [Lr] 500 ml IV BOLUS
11/25/24 22:42
Lactic Acid Urgent
11/25/24 23:24
Lactated Ringers [Lr] 1,000 ml IV PRN
11/26/24 00:15
CT Abd/pel W Iv And Oral Contr Urgent
Reason For Exam: abdominal pain, distension
11/26/24 01:23
Mag Hydrox/Al Hydrox/Simeth [Maalox] 30 ml Phenobarb/Hyoscy/Atropine/Scop [] 10 ml PO NOW
11/26/24 01:55
Mag Hydrox/Al Hydrox/Simeth [Maalox] 30 ml .ROUTE .STK-MED ONE
Phenobarb/Hyoscy/Atropine/Scop [] 10 ml .ROUTE .STK-MED ONE
Abnormal Lab Results
11/25/24
20:48
MCHC 32.2 L g/dL
(33.0-37.0)
RDW 15.0 H %
(11.5-14.5)
MPV 11.6 H fL
(7.4-10.4)
Absolute Neuts (auto) 8.9 H 10^3/uL
(1.4-6.5)
Absolute Lymphs (auto) 0.4 L 10^3/uL
(1.2-3.4)
Absolute Monos (auto) 0.7 H 10^3/uL
(0.1-0.6)
Neutrophils % 88.3 H %
(42.2-75.2)
Lymphocytes % 4.2 L %
(20.5-51.1)
BUN 42 H mg/dl
(7-17)
Glucose 120 H mg/dl
(70-99)
11/25/24 20:48
11/25/24 20:48
Vital Signs
Initial and Last Documented VS:
Initial Vital Signs
Temp Pulse Resp BP Pulse Ox
99.8 F 77 16 184/85 96
11/25/24 19:59 11/25/24 19:59 11/25/24 19:59 11/25/24 19:59 11/25/24 19:59
Last Documented Vital Signs
Temp Pulse Resp BP Pulse Ox
99.8 F 68 24 158/79 96
11/25/24 19:59 11/26/24 00:00 11/26/24 00:00 11/26/24 02:09 11/26/24 02:09
<Justyn Cunningham, DO - Last Filed: 11/26/24 01:47>
Orders/Labs/Results
Orders:
Orders
11/25/24 20:48
Complete Blood Count/With Diff Urgent
Comprehensive Metabolic Panel Urgent
Lipase Urgent
11/25/24 20:56
Cardiac Monitoring- Treatment ONCE
Iohexol [Omnipaque] See Protocol PO NOW STA
Ondansetron Injectable [Zofran] 4 mg IV NOW STA
11/25/24 20:57
Lactated Ringers [Lr] 500 ml IV BOLUS
11/25/24 22:40
Lactated Ringers [Lr] 500 ml IV BOLUS
11/25/24 22:42
Lactic Acid Urgent
11/25/24 23:24
Lactated Ringers [Lr] 1,000 ml IV PRN
11/26/24 00:15
CT Abd/pel W Iv And Oral Contr Urgent
Reason For Exam: abdominal pain, distension
11/26/24 01:23
Mag Hydrox/Al Hydrox/Simeth [Maalox] 30 ml Phenobarb/Hyoscy/Atropine/Scop [] 10 ml PO NOW
11/26/24 01:55
Mag Hydrox/Al Hydrox/Simeth [Maalox] 30 ml .ROUTE .STK-MED ONE
Phenobarb/Hyoscy/Atropine/Scop [] 10 ml .ROUTE .STK-MED ONE
Abnormal Lab Results
11/25/24
20:48
MCHC 32.2 L g/dL
(33.0-37.0)
RDW 15.0 H %
(11.5-14.5)
MPV 11.6 H fL
(7.4-10.4)
Absolute Neuts (auto) 8.9 H 10^3/uL
(1.4-6.5)
Absolute Lymphs (auto) 0.4 L 10^3/uL
(1.2-3.4)
Absolute Monos (auto) 0.7 H 10^3/uL
(0.1-0.6)
Neutrophils % 88.3 H %
(42.2-75.2)
Lymphocytes % 4.2 L %
(20.5-51.1)
BUN 42 H mg/dl
(7-17)
Glucose 120 H mg/dl
(70-99)
11/25/24 20:48
01/27/25 20:48
Vital Signs
Initial and Last Documented VS:
Initial Vital Signs
Temp Pulse Resp BP Pulse Ox
99.8 F 77 16 184/85 96
11/25/24 19:59 11/25/24 19:59 11/25/24 19:59 11/25/24 19:59 11/25/24 19:59
Last Documented Vital Signs
Temp Pulse Resp BP Pulse Ox
99.8 F 68 24 158/79 96
11/25/24 19:59 11/26/24 00:00 11/26/24 00:00 11/26/24 02:09 11/26/24 02:09
<Cruz George DO - Last Filed: 11/27/24 13:38>
MDM/Problems Addressed
Differential Diagnosis Includes:
sbo, gastroenteritis, gastritis, diverticulitis
MDM/Problems Addressed:
Patient presents with nausea vomiting abdominal discomfort and abdominal distention. Her exam indicates some abdominal distention which be consistent with an obstruction though more likely a gastritis or gastroenteritis. Patient treated with IV
fluids and IV antiemetics with improvement of her symptoms. Patient signed out pending CT scan
<Cruz George DO - Last Filed: 11/27/24 13:38>
*Pulse Oximetry
Patient hypoxic: no
<Justyn Cunningham DO - Last Filed: 11/26/24 01:47>
*Critical Care Note
Total Time (30-74mins, 75-104mins- exclusive of procedures): Not Applicable
<Justyn Cunningham DO - Last Filed: 11/26/24 01:47>
Update Note
Update Note:
Update, signout pending CT scan and CT scan noted reviewed with patient and spouse she has some minimal epigastric tenderness states feeling indigestion will try some Maalox,
ED Attending Note
<Cruz George DO - Last Filed: 11/27/24 13:38>
-
Portions of this chart may have been created with voice recognition software.� Occasional wrong word or��sound alike� substitutions may have occurred due to the inherent limitations of voice recognition software.
Discharge Plan
Departure
Patient Disposition: Home (Routine Discharge)
Date of Disposition: 11/26/24
Time of Disposition: 01:46
Patient with high blood pressure during this ER visit?: No
Condition: Good
Covid-19: Not Applicable
Discharge Problem:
Abdominal pain
Instructions: Clear Liquid Diet, Acid Reflux and GERD in Adults (DC), Abdominal Pain
Prescriptions:
New
dicyclomine 20 mg tablet
20 mg PO QID PRN (Reason: abdominal pain) Qty: 10 0RF
No Action
acetaminophen [Tylenol Extra Strength] 500 MG tablet
1,000 mg PO TID
cyanocobalamin (vitamin B-12) 1,000 mcg Tablet
1,000 mcg PO HS
valsartan 160 mg tablet
160 mg PO DAILY
potassium chloride 10 MEQ capsule, extended release
10 meq PO NOON
carvedilol 12.5 mg Tablet
12.5 mg PO BID 30 Days Qty: 60 0RF
furosemide 40 mg Tablet
40 mg PO DAILY 30 Days Qty: 30 0RF
amlodipine 5 mg tablet
5 mg PO DAILY 30 Days Qty: 30 0RF
oxycodone 5 mg Tablet
5 mg PO Q4HPRN PRN (Reason: mild pain) 3 Days Qty: 12 0RF
Referrals:
Bobby Dempsey MD [Family Provider] - Next open appointment
Activity Restrictions/Additional Instructions:
[place] diet, Maalox every 4-6 hours as needed for pain
Interventions
Interventions:
*Risk Screen - Suicide Last Done: 11/25/24 19:59
*General Assessment Last Done: 11/25/24 19:59
*Neglect/Abuse Screening Last Done: 11/25/24 19:59
ED- Fall Risk Assessment Last Done: 11/25/24 19:59
*ED COVID-19 Vaccine History Last Done: 11/25/24 19:59
*Nursing Disposition Last Done: 11/26/24 02:36
FI-Nagiym-Cfzsyatolr Assessment Last Done: 11/25/24 19:59
Discharge Date and Time
Discharge Date/Time: 11/26/24 02:37
Print Language: RUSSIAN
[2024-11-25 20:59] LABS: % Basophils 0.3 % (0-2); % Eosinophils 0.3 % (0-6); % Immature Granulocytes 0.4 % (0-0.5); % Lymphocytes 4.2 % (20.5-51.1); % Monocytes 6.5 % (1.7-9.3); % Neutrophils 88.3 % (42.2-75.2); Absolute Lymphocytes 0.4 10^3/uL (1.2-3.4); Absolute Monocytes 0.7 10^3/uL (0.1-0.6); Absolute Neutrophils 8.9 10^3/uL (1.4-6.5); Hematocrit 40.4 % (37.0-47.0); Mean Corp Hgb Conc. 32.2 g/dL (33.0-37.0); Mean Corpuscular Hgb 29.2 pg (27.0-31.0); Mean Corpuscular Volume 90.8 fL (81.0-99.0); Mean Platelet Volume 11.6 fL (7.4-10.4); Nucleated Red Blood Cells % 0 %; Platelet Count 218 10^3/uL (130-400); Red Blood Cell Count 4.45 10^6/uL (4.20-5.40); White Blood Cell Count 10.1 10^3/uL (4.8-10.8)
[2024-11-25 21:00] VITALS: BP 206/76
[2024-11-25 21:17] LABS: ALT (SGPT) < 10 U/L (0-35); AST (SGOT) 17 U/L (14-36); Albumin 3.9 g/dl (3.5-5.0); Alkaline Phosphatase 84 U/L (38-126); Blood Urea Nitrogen 42 mg/dl (7-17); Calcium 9.1 mg/dl (8.4-10.2); Carbon Dioxide 27 mmol/L (22-30); Chloride 102 mmol/L (98-107); Estimated Creatinine Clearance 42 ml/min; Glucose 120 mg/dl (70-99); Lipase 288 U/L (23-300); Potassium 3.9 mmol/L (3.5-5.1); Sodium 139 mmol/L (135-145); Total Bilirubin 1.2 mg/dl (0.2-1.3); Total Protein 6.6 g/dl (6.3-8.2); eGFR > 60.00
[2024-11-25 22:00] VITALS: BP 195/72
[2024-11-25] MEDS: ZOFRAN 4 MG IV (22:06)
[2024-11-25] MEDS: OMNIPAQUE 50 ML PO (22:06)
[2024-11-25 23:00] VITALS: BP 180/83
[2024-11-25 23:01] LABS: Lactic Acid 0.9 mmol/L (0.7-2.0)
[2024-11-25] MEDS: LR 1000 IV (23:27)
[2024-11-26] VITALS: BP 170/60
[2024-11-26] MEDS: MAALOX 40 PO (02:01)
[2024-11-26 02:09] VITALS: BP 158/79
== END 2024-11-26 02:37 | disposition home or self-care (01) ==
LOC: EMR 19:53
PROVIDERS: Emergency Medicine; EMERGENCY PHYSICIAN Emergency Medicine; FAMILY PHYSICIAN Internal Medicine
DX: R10.9 Unspecified abdominal pain (principal); R11.2 Nausea with vomiting, unspecified; I11.0 Hypertensive heart disease with heart failure; I50.9 Heart failure, unspecified; I25.10 Atherosclerotic heart disease of native coronary artery without angina pectoris; Z90.49 Acquired absence of other specified parts of digestive tract
CPT/HCPCS: 96374; 96361; 99284; 74177; 80053; 83605; 83690; 85025; Q9967

== ENCOUNTER → 2025-01-16 12:56 | Outpatient (REF) | payer MEDICARE, BC, SELFPAY | LOC: RAD 12:56 | PROVIDERS: ATTENDING PHYSICIAN Internal Medicine Hematology & Oncology; FAMILY PHYSICIAN Internal Medicine | DX: D69.3 Immune thrombocytopenic purpura (principal); L03.116 Cellulitis of left lower limb; D51.8 Other vitamin B12 deficiency anemias; C50.411 Malignant neoplasm of upper-outer quadrant of right female breast; D50.8 Other iron deficiency anemias; R75 Inconclusive laboratory evidence of human immunodeficiency virus [HIV]; D53.9 Nutritional anemia, unspecified | CPT/HCPCS: 36415; 76536; 80076; 85025 ==

== ENCOUNTER → 2025-03-10 10:55 | Outpatient (REF) | payer MEDICARE, BC, SELFPAY ==
[2025-03-10 11:30] LABS: % Basophils 1.1 % (0-2); % Eosinophils 1.5 % (0-6); % Immature Granulocytes 0.6 % (0-0.5); % Lymphocytes 10.2 % (20.5-51.1); % Monocytes 9.2 % (1.7-9.3); % Neutrophils 77.4 % (42.2-75.2); Absolute Basophils 0.1 10^3/uL (0-0.2); Absolute Eosinophils 0.1 10^3/uL (0-0.7); Absolute Lymphocytes 0.7 10^3/uL (1.2-3.4); Absolute Monocytes 0.6 10^3/uL (0.1-0.6); Absolute Neutrophils 5.1 10^3/uL (1.4-6.5); Hematocrit 34.7 % (37.0-47.0); Hemoglobin 11.3 g/dL (12.0-16.0); Mean Corp Hgb Conc. 32.6 g/dL (33.0-37.0); Mean Corpuscular Hgb 30.2 pg (27.0-31.0); Mean Corpuscular Volume 92.8 fL (81.0-99.0); Mean Platelet Volume 12.5 fL (7.4-10.4); Platelet Count 86 10^3/uL (130-400); Red Blood Cell Count 3.74 10^6/uL (4.20-5.40); Red Cell Dist. Width 14.3 % (11.5-14.5); White Blood Cell Count 6.6 10^3/uL (4.8-10.8)
[2025-03-10 12:54] LABS: Blood Urea Nitrogen 30 mg/dl (7-17); Calcium 8.9 mg/dl (8.4-10.2); Carbon Dioxide 24 mmol/L (22-30); Chloride 109 mmol/L (98-107); Glucose 98 mg/dl (70-99); HDL Cholesterol 65 mg/dl; LDL Cholesterol, Calculated 39 mg/dl; Potassium 4.3 mmol/L (3.5-5.1); Sodium 142 mmol/L (135-145); Total Cholesterol 114 mg/dl (50-199); Triglyceride 53 mg/dl (10-149); Very Low Density Lipoprotein 10 mg/dl (0-30); eGFR > 60.00
== END ==
LOC: OIDL 10:55
PROVIDERS: Nurse Practitioner Adult Health; Student in an Organized Health Care Education/Training Program; ATTENDING PHYSICIAN Internal Medicine Hematology & Oncology; FAMILY PHYSICIAN Internal Medicine
DX: D69.3 Immune thrombocytopenic purpura (principal); L03.116 Cellulitis of left lower limb; D51.8 Other vitamin B12 deficiency anemias; C50.411 Malignant neoplasm of upper-outer quadrant of right female breast; D50.8 Other iron deficiency anemias; R75 Inconclusive laboratory evidence of human immunodeficiency virus [HIV]; D53.9 Nutritional anemia, unspecified; I50.32 Chronic diastolic (congestive) heart failure
CPT/HCPCS: 36415; 80048; 80061; 85025

== ENCOUNTER → 2025-06-23 13:46 | Outpatient (REF) | payer MEDICARE, BC, SELFPAY ==
[2025-06-23 15:20] LABS: ALT (SGPT) 12 U/L (0-35); AST (SGOT) 18 U/L (14-36); Albumin 4.2 g/dl (3.5-5.0); Alkaline Phosphatase 56 U/L (38-126); Blood Urea Nitrogen 33 mg/dl (7-17); Calcium 8.6 mg/dl (8.4-10.2); Carbon Dioxide 23 mmol/L (22-30); Chloride 110 mmol/L (98-107); Glucose 166 mg/dl (70-99); Hematocrit 34.9 % (37.0-47.0); Hemoglobin 11.0 g/dL (12.0-16.0); Mean Corp Hgb Conc. 31.5 g/dL (33.0-37.0); Mean Corpuscular Volume 92.3 fL (81.0-99.0); Nucleated Red Blood Cells % 0 %; Potassium 4.3 mmol/L (3.5-5.1); Red Cell Dist. Width 14.0 % (11.5-14.5); Sodium 140 mmol/L (135-145); Total Protein 6.4 g/dl (6.3-8.2); eGFR > 60.00
[2025-06-23 18:21] LABS: Platelet Count 71 10^3/uL (130-400)
== END ==
LOC: REG 13:46
PROVIDERS: ATTENDING PHYSICIAN Internal Medicine Hematology & Oncology; FAMILY PHYSICIAN Internal Medicine
DX: D69.3 Immune thrombocytopenic purpura (principal); L03.116 Cellulitis of left lower limb; D51.8 Other vitamin B12 deficiency anemias; C50.411 Malignant neoplasm of upper-outer quadrant of right female breast; D50.8 Other iron deficiency anemias; R75 Inconclusive laboratory evidence of human immunodeficiency virus [HIV]; D53.9 Nutritional anemia, unspecified
CPT/HCPCS: 36415; 80053; 85025

== ENCOUNTER → 2025-09-01 12:58 | Outpatient (REF) | payer MEDICARE, BC, SELFPAY ==
[2025-09-01 14:01] LABS: Hematocrit 35.6 % (37.0-47.0); Hemoglobin 11.6 g/dL (12.0-16.0); Mean Corp Hgb Conc. 32.6 g/dL (33.0-37.0); Mean Corpuscular Volume 89.4 fL (81.0-99.0); Nucleated Red Blood Cells % 0 %; Platelet Count 39 10^3/uL (130-400); Red Cell Dist. Width 15.2 % (11.5-14.5)
[2025-09-01 14:11] LABS: ALT (SGPT) 13 U/L (0-35); AST (SGOT) 16 U/L (14-36); Albumin 4.3 g/dl (3.5-5.0); Alkaline Phosphatase 69 U/L (38-126); Total Protein 7.1 g/dl (6.3-8.2)
[2025-09-01 14:15] LABS: ALT (SGPT) 13 U/L (0-35); AST (SGOT) 16 U/L (14-36); Albumin 4.3 g/dl (3.5-5.0); Alkaline Phosphatase 68 U/L (38-126); Blood Urea Nitrogen 28 mg/dl (7-17); Calcium 9.2 mg/dl (8.4-10.2); Carbon Dioxide 23 mmol/L (22-30); Chloride 108 mmol/L (98-107); Glucose 102 mg/dl (70-99); Potassium 4.2 mmol/L (3.5-5.1); Sodium 138 mmol/L (135-145); Total Protein 7.1 g/dl (6.3-8.2); eGFR > 60.00
== END ==
LOC: OIDL 12:58
PROVIDERS: ATTENDING PHYSICIAN Internal Medicine Hematology & Oncology; FAMILY PHYSICIAN Internal Medicine
DX: D69.3 Immune thrombocytopenic purpura (principal); L03.116 Cellulitis of left lower limb; D51.8 Other vitamin B12 deficiency anemias; C50.411 Malignant neoplasm of upper-outer quadrant of right female breast; D50.8 Other iron deficiency anemias; D53.8 Other specified nutritional anemias
CPT/HCPCS: 36415; 80053; 80076; 85025

== ENCOUNTER → 2025-09-22 14:06 | Outpatient (REF) | payer MEDICARE, BC, SELFPAY ==
[2025-09-22 14:17] LABS: Hematocrit 33.8 % (37.0-47.0); Hemoglobin 10.9 g/dL (12.0-16.0); Mean Corp Hgb Conc. 32.2 g/dL (33.0-37.0); Mean Corpuscular Volume 93.4 fL (81.0-99.0); Platelet Count 109 10^3/uL (130-400); Red Cell Dist. Width 15.6 % (11.5-14.5)
== END ==
LOC: OIDL 14:06
PROVIDERS: ATTENDING PHYSICIAN Internal Medicine Hematology & Oncology; FAMILY PHYSICIAN Internal Medicine
DX: D69.3 Immune thrombocytopenic purpura (principal); L03.116 Cellulitis of left lower limb; D51.8 Other vitamin B12 deficiency anemias; C50.411 Malignant neoplasm of upper-outer quadrant of right female breast; D50.8 Other iron deficiency anemias; D53.9 Nutritional anemia, unspecified
CPT/HCPCS: 36415; 85025

== ENCOUNTER → 2025-10-13 13:29 | Outpatient (REF) | payer MEDICARE, BC, SELFPAY ==
[2025-10-13 14:02] LABS: Hematocrit 35.7 % (37.0-47.0); Hemoglobin 11.4 g/dL (12.0-16.0); Mean Corp Hgb Conc. 31.9 g/dL (33.0-37.0); Mean Corpuscular Volume 93.0 fL (81.0-99.0); Platelet Count 244 10^3/uL (130-400); Red Cell Dist. Width 15.0 % (11.5-14.5)
[2025-10-13 15:08] LABS: ALT (SGPT) 13 U/L (0-35); AST (SGOT) 15 U/L (14-36); Albumin 4.2 g/dl (3.5-5.0); Alkaline Phosphatase 68 U/L (38-126); Total Protein 6.9 g/dl (6.3-8.2)
== END ==
LOC: OIDL 13:29
PROVIDERS: ATTENDING PHYSICIAN Internal Medicine Hematology & Oncology; FAMILY PHYSICIAN Internal Medicine
DX: D69.3 Immune thrombocytopenic purpura (principal); L03.116 Cellulitis of left lower limb; D51.8 Other vitamin B12 deficiency anemias; C50.411 Malignant neoplasm of upper-outer quadrant of right female breast; D50.8 Other iron deficiency anemias; D53.8 Other specified nutritional anemias
CPT/HCPCS: 36415; 80076; 85025